=== PATIENT | female | born 1975 | race Caucasian/White ===

== ENCOUNTER → 2017-03-27 | Outpatient (REF) | payer MEDICARE, MEDICAID ==
[2017-03-27 14:20] LABS: BASO % 0.3 % (0.0-1.0); EOS # 0.1 10^3/uL (0.0-0.50); EOS % 1.4 % (0.0-3.0); HEMATOCRIT 45.8 % (36.0-47.0); HEMOGLOBIN 14.7 g/dl (12.0-16.0); IMMATURE GRANULOCYTE % 0.3 % (0-3.0); LYMPH # 2.2 10^3/uL (1.5-4.5); LYMPH % 23.6 % (24.0-44.0); MEAN CORPUSCULAR HEMOGLOBIN 28.4 pg (27.0-33.0); MEAN CORPUSCULAR HGB CONC 32.1 g/dl (32.0-36.5); MEAN CORPUSCULAR VOLUME 88.6 fl (80.0-96.0); MONO # 0.5 10^3/uL (0.0-0.8); MONO % 5.6 % (0.0-5.0); NEUTROPHILS # 6.3 10^3/uL (1.8-7.7); NEUTROPHILS % 68.8 % (36.0-66.0); PLATELET COUNT, AUTOMATED 261 10^3/uL (150-450); RED BLOOD COUNT 5.17 10^6/uL (4.00-5.40); RED CELL DISTRIBUTION WIDTH 14.6 % (11.5-14.5); WHITE BLOOD COUNT 9.2 10^3/uL (4.0-10.0)
[2017-03-27 14:33] LABS: TOTAL 25(OH) VITAMIN D 16.7 NG/ML (30.0-100.0)
[2017-03-27 14:51] LABS: ERYTHROCYTE SEDIMENTATION RATE 7 mm/hr (0-20)
[2017-03-27 15:22] LABS: ALBUMIN 3.7 GM/DL (3.2-5.2); ALKALINE PHOSPHATASE 100 U/L (45-117); ALT/SGPT 20 U/L (12-78); ANION GAP 9 MEQ/L (8-16); AST/SGOT 17 U/L (7-37); BILIRUBIN,TOTAL 0.4 MG/DL (0.2-1.0); BLOOD UREA NITROGEN 11 MG/DL (7-18); CARBON DIOXIDE LEVEL 23 MEQ/L (21-32); CHLORIDE LEVEL 108 MEQ/L (98-107); CREATININE FOR GFR 0.82 MG/DL (0.55-1.30); GLOMERULAR FILTRATION RATE > 60.0 (>60); GLUCOSE, FASTING 79 MG/DL (70-100); POTASSIUM SERUM 4.3 MEQ/L (3.5-5.1); RHEUMATOID FACTOR QUANT < 10.0 IU/ML (0-15.0); SODIUM LEVEL 140 MEQ/L (136-145); TOTAL PROTEIN 7.4 GM/DL (6.4-8.2)
[2017-03-28 10:13] LABS: ANTINUCLEAR ANTIBODIES DIRECT Negative (Negative)
== END ==
LOC: M LABNEURO 10:05
DX: R51 Headache (principal)
CPT/HCPCS: 84443

== ENCOUNTER → 2018-01-20 | Outpatient (CLI) | payer MEDICARE, MEDICAID ==
[2018-01-20 18:02] LABS: BASO % 0.2 % (0.0-1.0); EOS # 0.1 10^3/uL (0.0-0.50); EOS % 0.9 % (0.0-3.0); HEMATOCRIT 40.4 % (36.0-47.0); HEMOGLOBIN 13.2 g/dl (12.0-15.5); LYMPH # 2.9 10^3/uL (1.5-4.5); LYMPH % 20.9 % (24.0-44.0); MEAN CORPUSCULAR HEMOGLOBIN 28.9 pg (27.0-33.0); MEAN CORPUSCULAR HGB CONC 32.7 g/dl (32.0-36.5); MEAN CORPUSCULAR VOLUME 88.6 fl (80.0-96.0); MONO # 0.7 10^3/uL (0.0-0.8); MONO % 4.9 % (0.0-5.0); NEUTROPHILS # 10.2 10^3/uL (1.8-7.7); NEUTROPHILS % 72.5 % (36.0-66.0); PLATELET COUNT, AUTOMATED 234 10^3/uL (150-450); RED BLOOD COUNT 4.56 10^6/uL (4.00-5.40)
[2018-01-22 09:52] LABS: HEPATITIS C VIRUS ABY INDEX 0.1 INDEX (<0.8); HIV 1&2 SCREEN CENTAUR NEGATIVE (NEGATIVE); RUBELLA IgG QUALITATIVE IMMUNE (IMMUNE)
== END ==
LOC: M SMT 14:05
PROVIDERS: ATTEND Advanced Practice Midwife
DX: Z36.89 Encounter for other specified antenatal screening (principal)

== ENCOUNTER → 2018-01-23 | Outpatient (CLI) | payer MEDICARE, MEDICAID | LOC: M RAD 13:29 | DX: Z36.89 Encounter for other specified antenatal screening (principal); Z3A.22 22 weeks gestation of pregnancy | CPT/HCPCS: 76811 ==

== ENCOUNTER → 2018-03-24 | Outpatient (CLI) | payer MEDICARE, MEDICAID ==
[2018-03-24 17:40] LABS: HEMATOCRIT 39.7 % (36.0-47.0); HEMOGLOBIN 12.6 g/dl (12.0-15.5); MEAN CORPUSCULAR HEMOGLOBIN 28.3 pg (27.0-33.0); MEAN CORPUSCULAR HGB CONC 31.7 g/dl (32.0-36.5); MEAN CORPUSCULAR VOLUME 89.2 fl (80.0-96.0); PLATELET COUNT, AUTOMATED 262 10^3/uL (150-450); RED BLOOD COUNT 4.45 10^6/uL (4.00-5.40); WHITE BLOOD COUNT 12.4 10^3/uL (4.0-10.0)
[2018-03-24 18:15] LABS: CHLAMYDIA DNA AMPLIFICATION NEGATIVE (NEGATIVE); GC DNA AMPLIFICATION NEGATIVE (NEGATIVE)
--- NOTE | 2018-03-24 19:54 | REP ---
OB ULTRASOUND: Real-time sonographic evaluation of the gravid uterus is performed. There is a single living intrauterine gestation. The estimated gestational age is 30 weeks 5 days, EDC 05/28/2018. Today's measurements indicate appropriate growth. BPD 74 mm = 29 2 weeks 5 days, 28th percentile. HC 271 mm = 29 weeks 4 days, 25th percentile. AC 289 mm = 32 weeks 6 days, 83rd percentile. Femur length 59 mm = 30 weeks 6 days, at the 52nd percentile. HC/AC ratio 0.94, slightly below normal range of 0.97 to 1.16. Estimated weight 1814 grams, 62nd percentile. Cervix is closed and measures 4.7 cm in length. heart rate 143 beats per minute. Amniotic fluid within normal limits, STEFANI 14.1 within normal range of 8.9 to 23.7. SD ratio 4.25 is within normal range. RI 0.76 within normal range. Visualized anatomy includes posterior fossa, cord insertion, kidneys, and spine which are grossly unremarkable. position is vertex. Placenta is posterior and grade 1 with no previa or abruption. Electronically Signed by Justice Aguillon MD 03/25/2018 10:34 A
== END ==
LOC: M RAD 14:25
PROVIDERS: ATTEND Obstetrics & Gynecology
DX: Z34.82 Encounter for supervision of other normal pregnancy, second trimester (principal); Z36.89 Encounter for other specified antenatal screening; Z3A.30 30 weeks gestation of pregnancy

== ENCOUNTER → 2018-03-28 | Outpatient (CLI) | payer MEDICARE, MEDICAID | LOC: M LAB 08:37 | PROVIDERS: ATTEND Obstetrics & Gynecology | DX: O09.523 Supervision of elderly multigravida, third trimester (principal); Z3A.00 Weeks of gestation of pregnancy not specified ==

== ENCOUNTER → 2018-04-04 | Outpatient (REF) | payer MEDICARE, MEDICAID | LOC: M LAB REF 17:17 | PROVIDERS: ATTEND Advanced Practice Midwife | DX: B09 Unspecified viral infection characterized by skin and mucous membrane lesions (principal) ==

== ENCOUNTER → 2018-04-18 | Outpatient (REF) | payer MEDICARE, MEDICAID ==
[2018-04-23 08:23] LABS: HPV HYBRID CAPTURE II Positive (Negative)
== END ==
LOC: M LAB REF 13:15
PROVIDERS: ATTEND Advanced Practice Midwife
DX: Z12.4 Encounter for screening for malignant neoplasm of cervix (principal); O09.523 Supervision of elderly multigravida, third trimester; Z11.51 Encounter for screening for human papillomavirus (HPV); Z3A.00 Weeks of gestation of pregnancy not specified
CPT/HCPCS: 87624; G0123

== ENCOUNTER 2018-05-23 06:39 | Inpatient (IN) | payer MEDICARE, MEDICAID ==
[~2018-05-23] VITALS: Ht 182.9 cm; Wt 129.0 kg
[2018-05-23] VITALS (17 sets, daily range): BP systolic 104–141; BP diastolic 55–87
[2018-05-23] MEDS ORDERED: LACTATED RINGER'S 1000 ML IV STA (07:55)
--- NOTE | 2018-05-23 08:12 | HPEPDOC ---
Obstetrical History & Physical General Date of Admission May 23, 2018 at 06:39 History of Present Illness Chief Complaint: Induction of labor Information Provided By: Patient Age: 42 : 2 Term: 1 Pre-term: 0 Abortions: 0 Livin Care Care: Limited Care (late entry to care) Dating Final EDC: May 28, 2018 Final EDC by: 2nd trimester (US) EGA at Admission: 39 (+2) Antepartum Course Height (inches): 72 Admission Weight (lbs.): 281 Past Medical History Past Obstetrical History : Past Obstetrical History: Primgravida (2013) Type of Delivery: Spontaneous Vaginal Del. Sex of : Male (6#4) Complications: Yes (home delivery, unaware of ) GREEN WARE CASTER History: No pertinent history Past Medical History Surgical History: Other (brain tumor resection x 2) Family History Significant Family History: Diabetes, Hypertension Social History Marital Status: Single Family situation: Spouse/partner home Psychosocial History: No pertinent psych hx * Smoker: current smoker Alcohol: Denies Drugs: denies Imunizations Tdap status: current Allergies Coded Allergies: Penicillins (Verified Allergy, Severe, RASH, 05/23/18) Medications No Active Prescriptions or Reported Meds Physical Examination Physical Examination GENERAL: Alert and oriented times three. BREAST: . ABDOMEN: Gravid and non-tender to touch. FETUS: Is vertex (VTX) by sterile vaginal examination (SVE), fetus is vertex (VTX) by Arjun. HEART RATE: Regular rate and rhythm. LUNGS: Clear to auscultation (CTA). EXTREMITIES: No edema. No clonus. Deep tendon reflexes (DTRs) + 2. Laboratory Data 24H LABS Laboratory Tests 2 05/23/18 07:01: Serology Scanned Report Hepatitis B Testing Pertinent Laboratoy Data Blood Type: B+ RBC Antibody Screen: Negative HIV: Negative Hepatitis B: Negative Hepatitis C: Negative Rapid Plasma Reagin: Nonreactive Rubella: Immune Chlamydia/Gonorrhea: Negative Group B Streptococcus: Positive Glucose Tolerance Test: 147 (3hr 79,188.153,83) Anatomy Ultrasound Ultrasound Date: Jan 23, 2018 Normal Anatomy: Yes Placenta Previa: No Estimated Weight (grams): 496 (51%) Other Ultrasounds 03/24/18 FH 143, 1814gm 62%, anatomy WNL Steroid Therapy Steroid Therapy: No Vaginal Examination Dilation: 1cm Effacement: 50% Station: -3 (-4, floating) Cervical Position: Posterior Presentation: Cephalic presentation (confirmed by bedside sono) Assessment Heart Rate (FHR): 130 Variability: Moderate Accelerations: Positive Decelerations: None Tocometer Contractions: Yes Frequency: irregular (rare) Strength: palpated as mild Assessment/Plan Assessment Allison is a 42-year-old (G)2 para (P)1-0-0-1 at 39+2 weeks by 22-week ultrasound. Presents to Labor and Delivery (L&D) for induction of labor due to advanced maternal age. Denies LOF, bleeding or regular UC. Fetus is active. Bedside sono confirms presentation. Plan Admit and orient per consult Dr Mason Associate Scientist and consent. Diet: Regular Group B Streptococcus (GBS) positive, treat in active labor. Labs and intravenous (IV) per unit protocol. Counseled on misoprostol, Pitocin and induction of labor (IOL). Lactated Ringers (LR): Bolus 500 mL, then at saline lock. Plans to labor ad faizan Anticipate normal spontaneous delivery () C-S as appropriate. Katlyn Rivas CNM May 23, 2018 08:12
[2018-05-23 08:17] LABS: HEMATOCRIT 41.7 % (36.0-47.0); HEMOGLOBIN 13.9 g/dl (12.0-15.5); MEAN CORPUSCULAR HEMOGLOBIN 28.9 pg (27.0-33.0); MEAN CORPUSCULAR HGB CONC 33.3 g/dl (32.0-36.5); MEAN CORPUSCULAR VOLUME 86.7 fl (80.0-96.0); PLATELET COUNT, AUTOMATED 193 10^3/uL (150-450); RED BLOOD COUNT 4.81 10^6/uL (4.00-5.40); WHITE BLOOD COUNT 11.7 10^3/uL (4.0-10.0)
[2018-05-23] MEDS: miSOPROStol 50 MCG 1/2 TAB (S0191) PO SCH ×3 (08:19→17:11)
--- NOTE | 2018-05-23 20:15 | IPNPDOC ---
Text Note Date of Service The patient was seen on 05/23/18. NOTE Irregular UC Occasional variable decels following misoprostol administration Cat I with intermittent Cat II Will attempt Cooks Catheter and low dose pitocin overnight VS,Fishbone, I+O VS, Fishbone, I+O Laboratory Tests 05/23/18 08:03 Red Blood Count 4.81, Mean Corpuscular Volume 86.7, Mean Corpuscular Hemoglobin 28.9, Mean Corpuscular Hemoglobin Concent 33.3, Red Cell Distribution Width 15.4 H Vital Signs Date Time Temp Pulse Resp B/P (MAP) Pulse Ox O2 Delivery O2 Flow Rate FiO2 05/23/18 18:21 55 18 104/55 (71) 05/23/18 11:53 98.2 Katlyn Rivas CNM May 23, 2018 20:15
[2018-05-23] MEDS ORDERED: OXYTOCIN DRIP 30 UNITS in APPROPRIATE DILUENT 1 EA IV SCH (21:00)
--- NOTE | 2018-05-23 21:02 | IPNPDOC ---
Text Note Date of Service The patient was seen on 05/23/18. NOTE Mild irregular UC FH 130, Cat I SVE 250/-3, very anterior Cooks catheter placed, 60/40 Low dose pitocin overnight VS,Fishbone, I+O VS, Fishbone, I+O Laboratory Tests 05/23/18 08:03 Red Blood Count 4.81, Mean Corpuscular Volume 86.7, Mean Corpuscular Hemoglobin 28.9, Mean Corpuscular Hemoglobin Concent 33.3, Red Cell Distribution Width 15.4 H Vital Signs Date Time Temp Pulse Resp B/P (MAP) Pulse Ox O2 Delivery O2 Flow Rate FiO2 05/23/18 18:21 55 18 104/55 (71) 05/23/18 11:53 98.2 Katlyn Rivas CNM May 23, 2018 21:02
[2018-05-23] MEDS ORDERED: BUTORPHANOL 2 MG/ML INJ (J0595) IV ONE (21:15)
[2018-05-23] MEDS ORDERED: PROMETHAZINE INJ 25 MG/ML VIAL (J2550) IV ONE (21:15)
[2018-05-23] MEDS: LR 1,000 ML IV SCH (21:28)
[2018-05-24] VITALS (40 sets, daily range): BP systolic 97–171; BP diastolic 54–117
[2018-05-24] MEDS: CLINDAMYCIN 900 MG in APPROPRIATE DILUENT 1 EA IV SCH ×3 (00:37→16:56)
--- NOTE | 2018-05-24 03:14 | IPNPDOC ---
Text Note Date of Service The patient was seen on 05/24/18. NOTE Cooks catheter out with a cough FH 130, Cat I now UC 3-4 minutes apart x 60 seconds SVE 3-/-2 Will restart lo dose pitocin overnight VS,Fishbone, I+O VS, Fishbone, I+O Laboratory Tests 05/23/18 08:03 Red Blood Count 4.81, Mean Corpuscular Volume 86.7, Mean Corpuscular Hemoglobin 28.9, Mean Corpuscular Hemoglobin Concent 33.3, Red Cell Distribution Width 15.4 H Vital Signs Date Time Temp Pulse Resp B/P (MAP) Pulse Ox O2 Delivery O2 Flow Rate FiO2 05/23/18 18:21 55 18 104/55 (71) 05/23/18 11:53 98.2 I&O- Last 24 Hours up to 6 AM 05/24/18 06:00 Intake Total 500 ml Balance 500 ml Katlyn Rivas CNM May 24, 2018 03:14
[2018-05-24] MEDS: LR 1,000 ML IV SCH ×3 (03:50→18:48)
[2018-05-24] MEDS ORDERED: ceFAZolin SOD 1 GM in D5W MINI-BAG PLUS 50 ML IV SCH (05:00)
[2018-05-24] MEDS ORDERED: ACETAMINOPHEN 500 MG TAB PO PRN (21:30)
[2018-05-24] MEDS ORDERED: MEASLES,MUMPS,RUBELLA VACCINE INJ (MMR-II) (90707) SC SCH (21:30)
[2018-05-24] MEDS ORDERED: LIDOCAINE 1% MDV 20ML VIAL INFIL ONE (21:30)
[2018-05-24] MEDS ORDERED: METHYLERGONOVINE MALEATE 0.2 MG TAB PO PRN (21:30)
[2018-05-24] MEDS ORDERED: RHOGAM 300 MCG (1500 IU) INJ (J2790) IM SCH (21:30)
[2018-05-24] MEDS ORDERED: OXYTOCIN DRIP 30 UNITS in APPROPRIATE DILUENT 1 EA IV ONE (21:30)
[2018-05-24] MEDS ORDERED: DIBUCAINE 1% OINTMENT 30GM TOP PRN (21:30)
[2018-05-24] MEDS ORDERED: ONDANSETRON 4MG/2ML VIAL (J2405) IV PRN (21:30)
[2018-05-24] MEDS ORDERED: IBUPROFEN 800 MG TAB PO PRN (21:30)
[2018-05-24] MEDS ORDERED: DOCUSATE SODIUM 100 MG CAP PO PRN (21:30)
[2018-05-25 06:00] VITALS: BP 106/68
[2018-05-25] MEDS: PRENATAL VITAMINS CHEWABLE TABLET PO SCH (08:55)
--- NOTE | 2018-05-25 09:35 | DN ---
DATE OF DELIVERY: 05/24/2018 PREDELIVERY DIAGNOSIS: 40 weeks, induction. POSTDELIVERY DIAGNOSIS: Delivered. PROCEDURE: Spontaneous vaginal delivery. TALENT DEVELOPMENT ANALYST: Dr. Jose Mason ANESTHESIA: None. ESTIMATED BLOOD LOSS: 300 mL. FINDINGS: 7 pound 0 ounce male infant, Apgars 8 and 9. DELIVERY SUMMARY: After a 45 minute second stage, the patient had spontaneous delivery of a 7 pound 0 ounce male , Apgars 8 and 9, with no delivery anesthesia. There was no nuchal cord. The shoulders delivered with ease. The was handed to the mother and cried immediately. Cord was doubly clamped and cut. Placenta delivered spontaneously and appeared to be intact. A second degree perineal laceration was repaired with #2-0 chromic under local anesthesia in the usual fashion. Sponge and needle counts were correct.
[2018-05-25 20:00] VITALS: BP 137/63
[2018-05-26 05:53] VITALS: BP 142/68
[2018-05-26] MEDS: PRENATAL VITAMINS CHEWABLE TABLET PO SCH (08:36)
[2018-05-26] MEDS ORDERED: IBUP200C27 PO (09:35)
[2018-05-26] MEDS ORDERED: PRENTAB9 PO (09:35)
[2018-05-26] MEDS ORDERED: MAPA500T2 PO (09:35)
== END 2018-05-26 09:55 | disposition home or self-care (01) | DRG 807 ==
LOC: M LDI 06:39 → M OBS 05-24 22:56
PROVIDERS: ADMIT Obstetrics & Gynecology; ATTEND Specialist
PROC: 3E0P7GC Introduction of Other Therapeutic Substance into Female Reproductive, Via Natural or Artificial Opening (ICD-10-PCS; 2018-05-23)
PROC: 10E0XZZ Delivery of Products of Conception, External Approach (ICD-10-PCS; principal; 2018-05-24)
PROC: 0KQM0ZZ Repair Perineum Muscle, Open Approach (ICD-10-PCS; 2018-05-24)
DX: O99.824 Streptococcus B carrier state complicating childbirth (principal); Z37.0 Single live birth; F17.210 Nicotine dependence, cigarettes, uncomplicated; Z3A.39 39 weeks gestation of pregnancy; O99.334 Smoking (tobacco) complicating childbirth; O70.1 Second degree perineal laceration during delivery

== ENCOUNTER → 2020-07-23 | Outpatient (CLI) | payer MEDICARE, MEDICAID ==
[~2020-07-23] MED LIST: IBUP200C27 PO; MAPA500T2 PO; PRENTAB9 PO
[2020-07-23 15:28] LABS: BASO # 0.1 10^3/uL (0.0-0.2); BASO % 0.5 % (0.0-1.0); EOS # 0.2 10^3/uL (0.0-0.5); EOS % 1.8 % (0.0-3.0); HEMATOCRIT 43.9 % (36.0-47.0); HEMOGLOBIN 14.1 g/dl (12.0-15.5); LYMPH # 2.8 10^3/uL (1.5-5.0); LYMPH % 24.9 % (24.0-44.0); MEAN CORPUSCULAR HEMOGLOBIN 28.8 pg (27.0-33.0); MEAN CORPUSCULAR HGB CONC 32.1 g/dl (32.0-36.5); MEAN CORPUSCULAR VOLUME 89.8 fl (80.0-96.0); MONO # 0.5 10^3/uL (0.0-0.8); MONO % 4.7 % (2.0-8.0); NEUTROPHILS # 7.7 10^3/uL (1.5-8.5); NEUTROPHILS % 67.7 % (36.0-66.0); PLATELET COUNT, AUTOMATED 261 10^3/uL (150-450); RED BLOOD COUNT 4.89 10^6/uL (4.00-5.40); WHITE BLOOD COUNT 11.4 10^3/uL (4.0-10.0)
[2020-07-23 15:47] LABS: HEMOGLOBIN A1c 7.3 %
[2020-07-23 16:06] LABS: ALBUMIN 3.2 GM/DL (3.2-5.2); ALT/SGPT 49 U/L (12-78); BILIRUBIN,TOTAL 0.2 MG/DL (0.2-1.0); BLOOD UREA NITROGEN 9 MG/DL (7-18); CALCIUM LEVEL 8.1 MG/DL (8.5-10.1); CARBON DIOXIDE LEVEL 25 MEQ/L (21-32); CHLORIDE LEVEL 108 MEQ/L (98-107); CHOLESTEROL LEVEL 149 MG/DL (<200); CHOLESTEROL RISK RATIO 4.257 (<5); CREATININE FOR GFR 0.83 MG/DL (0.55-1.30); GLOMERULAR FILTRATION RATE > 60.0 (>58); GLUCOSE, FASTING 219 MG/DL (70-100); HDL CHOLESTEROL 35 MG/DL (>40); LDL CHOLESTEROL 81 MG/DL (<100); NON-HDL-C 114 MG/DL; SODIUM LEVEL 139 MEQ/L (136-145); TRIGLYCERIDES LEVEL 165 MG/DL (<150)
== END ==
LOC: M LAB 14:54
PROVIDERS: ATTEND Internal Medicine
DX: E11.9 Type 2 diabetes mellitus without complications (principal)

== ENCOUNTER 2021-01-06 10:33 | Emergency (ER) | payer MEDICARE, MEDICAID ==
[~2021-01-06] VITALS: Ht 182.9 cm; Wt 145.4 kg
--- OUTSIDE RECORDS SUMMARY | 2021-01-06 10:37 | CCD | Continuity of Care Document ---
Author Author Allison QUINTANILLA M.D. Organization Unknown Address [address] [place] [id number] Phone [phone] Problems Active Problems Provider Date Diabetes mellitus Riley Quintanilla M.D. Onset: Social History Type Date Description Comments Sex Unknown Tobacco Use Start: Unknown Patient is a current smoker, smo kes every day Allergies, Adverse Reactions, Alerts Active Allergies Criticality Reaction | Severity Comments Date Penicillins Unable to assess criticality 06/08/2020 Medications Active Medications SIG Qnty Indications Ordering Provide r Date Lexapro 10mg Tablets 1 by mouth every day 30tabs Riley Quintanilla M.D. 10/24/2020 Glucotrol XL 10mg Tablets ER 24HR 1 by mouth every day 90tabs Riley Quintanilla M.D. 07/21/19 21 Onetouch Ultra Strips test blood sugars once a day and as needed (dx:e11.9) 50units E11.9 Kodi Quintanilla M.D. 01/01/2020 History Medications Glucotrol XL 5mg Tablets ER 24HR 1 by mouth every day 30tabs Riley Quintanilla M.D. 06/09/19 21 - 07/20/2020 Immunizations Description No Information Available Vital Signs Date Vital Result Comment 10/24/2020 9:57am BP Systolic 124 mmHg BP Diastolic 74 mmHg Body Temperature 96.7 F Heart Rate 78 /min Respiratory Rate 16 /min Height 73 inches 6'1" Weight 330.00 lb [place] Body Weight 165 lb BMI (Body Mass Index) 43.5 kg/m2 O2 % BldC Oximetry 98 % 07/20/2020 2:39pm BP Systolic 106 mmHg BP Diastolic 60 mmHg Body Temperature 96.7 F Heart Rate 88 /min Respiratory Rate 18 /min Height 73 inches 6'1" Weight 341.00 lb [place] Body Weight 165 lb BMI (Body Mass Index) 45.0 kg/m2 O2 % BldC Oximetry 96 % Results Test Acquired Date Facility Test Result H/L Range Note CBC With Differential 07/23/2020 [facility] (Interface) [phone] White Blood Count 11.4 10 High 4.0-10.0 Red Blood Count 4.89 10 Normal 4.00-5.40 Hemoglobin 14.1 g/dL Normal 12.0-15.5 Hematocrit 43.9 % Normal 36.0-47.0 Mean Corpuscular Volume 89.8 fl Normal 80.0-96.0 Mean Corpuscular Hemoglobin 28.8 pg Normal 27.0-33.0 Mean Corpuscular HGB Conc 32.1 g/dL Normal 32.0-36.5 Red Cell Distribution Width 13.6 % Normal 11.5-14.5 Platelet Count, Automated 261 10 Normal 150-450 Neutrophils % 67.7 % High 36.0-66.0 Lymph % 24.9 % Normal 24.0-44.0 [place] % 4.7 % Normal 2.0-8.0 Eos % 1.8 % Normal 0.0-3.0 Baso % 0.5 % Normal 0.0-1.0 Immature Granulocyte % 0.4 % Normal 0-3.0 Nucleated Red Blood Cell % 0.0 % Normal 0-0 Neutrophils # 7.7 10 Normal 1.5-8.5 Lymph # 2.8 10 Normal 1.5-5.0 [place] # 0.5 10 Normal 0.0-0.8 Eos # 0.2 10 Normal 0.0-0.5 Baso # 0.1 10 Normal 0.0-0.2 Hemoglobin A1c 07/23/2020 [facility] [phone] Hemoglobin A1c 7.3 % Normal 1 Estimated Average Glucose 163 mg/dL High 60-110 Comprehensive Metabolic Profil 07/23/2020 [facility] (Interface) [phone] Glucose, Fasting 219 mg/dL High 70-100 Blood Urea Nitrogen 9 mg/dL Normal 7-18 Creatinine For GFR 0.83 mg/dL Normal 0.55-1.30 Glomerular Filtration Rate > 60.0 Normal >58 2 Sodium Level 139 mEq/L Normal 136-145 Potassium Serum 4.0 mEq/L Normal 3.5-5.1 Chloride Level 108 mEq/L High 98-107 Carbon Dioxide Level 25 mEq/L Normal 21-32 Anion Gap 6 mEq/L Low 8-16 Calcium Level 8.1 mg/dL Low 8.5-10.1 Ast/Sgot 34 U/L Normal 7-37 Alt/SGPT 49 U/L Normal 12-78 Alkaline Phosphatase 131 U/L High 45-117 Bilirubin,Total 0.2 mg/dL Normal 0.2-1.0 Total Protein 7.0 GM/DL Normal 6.4-8.2 Albumin 3.2 GM/DL Normal 3.2-5.2 Albumin/Globulin Ratio 0.8 Low 1.2-2.2 Lipid Panel 07/23/2020 [facility] ([facility]) [phone] Triglycerides Level 165 mg/dL High <150 Cholesterol Level 149 mg/dL Normal <200 HDL Cholesterol 35 mg/dL Low >40 LDL Cholesterol 81 mg/dL Normal <100 Non-HDL-C 114 mg/dL Normal Cholesterol Risk Ratio 4.257 Normal <5 Laboratory test finding 07/23/2020 [facility] (Interface) [phone] Thyroid Stimulating Hormone 1.980 uIU/ML Normal 0. 358-3.740 1 REFERENCE RANGES: <=5.6% NORMAL 5.7-6.4% SUGGESTS IMPAIRED GLUCOSE META BOLISM/PREDIABETIC >= 6.5% ABNORMAL 2 Units are mL/min/1.73 m2 Chronic Kidney Disease Staging per NKF: Stage I & II GFR >=60 Normal to Mildly Decreased Stage III GFR 30-59 Moderately Decreased Stage IV GFR 15-29 Severely Decreased Stage V GFR <15 Very Little GFR Left ESRD GFR <15 on [employer] Procedures Date Code Description Status 10/24/2020 88555 Office/Outpatient Established Mo d MDM 30-39 Min Completed 07/20/2020 07970 Office/Outpatient Established Mo d MDM 30-39 Min Completed 06/08/2020 57954 Preventive Visit New 40-64 Yrs C ompleted Medical Devices Description No Information Available Encounters Type Date Location Provider Dx Diagnosis Office Visit 10/24/2020 11:00a [facility] Riley Quintanilla M. D. E11.9 Type 2 diabetes mellitus without complications F33.0 Major depressive disorder, r ecurrent, mild Office Visit 07/20/2020 3:20p [facility] Riley Quintanilla M. D. E11.9 Type 2 diabetes mellitus without complications Office Visit 06/08/2020 1:30p [facility] Riley Quintanilla M. D. Z00.01 Encounter for general adult medical exam w abnormal findings E11.9 Type 2 diabetes mellitus wit hout complications Assessments Date Code Description Provider 10/24/2020 E11.9 Type 2 diabetes mellitus without complications Riley Quintanilla M.D. 10/24/2020 F33.0 Major depressive disorder, recur rent, mild Riley Quintanilla M.D. 07/20/2020 E11.9 Type 2 diabetes mellitus without complications Riley Quintanilla M.D. 06/08/2020 Z00.01 Encounter for genera l adult medical examination with abnormal findings Riley Quintanilla M.D. 06/08/2020 E11.9 Type 2 diabetes mellitus without complications Riley Quintanilla M.D. Plan of Treatment No Information Available Functional Status Description No Information Available Mental Status Description No Information Available Referrals Description No Information Available
--- OUTSIDE RECORDS SUMMARY | 2021-01-06 10:37 | CCD | Continuity of Care Document ---
Author Author Allison QUINTANILLA M.D. Organization Unknown Address [address] [place] [id number] Phone [phone] Problems Active Problems Provider Date Diabetes mellitus [...] Height 73 inches 6'1" Weight 330.00 lb [place] Body Weight 165 lb BMI (Body Mass Index) 43.5 kg/m2 O2 % BldC Oximetry 98 % 07/20/2020 2:39pm BP Systolic 106 mmHg BP Diastolic 60 mmHg Body Temperature 96.7 F Heart Rate 88 /min Respiratory Rate 18 /min Height 73 inches 6'1" Weight 341.00 lb [place] Body Weight 165 lb BMI (Body Mass Index) 45.0 kg/m2 O2 % BldC Oximetry 96 % Results Test Acquired Date Facility Test Result H/L Range Note CBC With Differential 07/23/2020 [facility] (Interface) [phone] White Blood Count 11.4 10 High 4.0-10.0 [...] 36.0-66.0 Lymph % 24.9 % Normal 24.0-44.0 [place] % 4.7 % Normal 2.0-8.0 Eos % 1.8 % Normal 0.0-3.0 Baso % 0.5 % Normal 0.0-1.0 Immature Granulocyte % 0.4 % Normal 0-3.0 Nucleated Red Blood Cell % 0.0 % Normal 0-0 Neutrophils # 7.7 10 Normal 1.5-8.5 Lymph # 2.8 10 Normal 1.5-5.0 [place] # 0.5 10 Normal 0.0-0.8 Eos # 0.2 10 Normal 0.0-0.5 Baso # 0.1 10 Normal 0.0-0.2 Hemoglobin A1c 07/23/2020 [facility] [phone] Hemoglobin A1c 7.3 % Normal 1 Estimated Average Glucose 163 mg/dL High 60-110 Comprehensive Metabolic Profil 07/23/2020 [facility] (Interface) [phone] Glucose, Fasting 219 mg/dL High 70-100 Blood [...] Ratio 0.8 Low 1.2-2.2 Lipid Panel 07/23/2020 [facility] ([facility]) [phone] Triglycerides Level 165 mg/dL High <150 Cholesterol Level 149 mg/dL Normal <200 HDL Cholesterol 35 mg/dL Low >40 LDL Cholesterol 81 mg/dL Normal <100 Non-HDL-C 114 mg/dL Normal Cholesterol Risk Ratio 4.257 Normal <5 Laboratory test finding 07/23/2020 [facility] (Interface) [phone] Thyroid Stimulating Hormone 1.980 uIU/ML Normal 0. [...] Little GFR Left ESRD GFR <15 on RADIO HOST Procedures Date Code Description Status 10/24/2020 11079 Office/Outpatient Established Mo d MDM 30-39 Min Completed 07/20/2020 63781 Office/Outpatient Established Mo d MDM 30-39 Min Completed 06/08/2020 82302 Preventive Visit New 40-64 Yrs C ompleted Medical Devices Description No Information Available Encounters Type Date Location Provider Dx Diagnosis Office Visit 10/24/2020 11:00a [facility] Riley Quintanilla M. D. E11.9 Type 2 diabetes mellitus without complications F33.0 Major depressive disorder, r ecurrent, mild Office Visit 07/20/2020 3:20p [facility] Riley Quintanilla M. D. E11.9 Type 2 diabetes mellitus without complications Office Visit 06/08/2020 1:30p [facility] Riley Quintanilla M. D. Z00.01 Encounter [...] complications Riley Quintanilla M.D. Plan of Treatment Future Appointment(s):* 11/25/2020 8:45 am - Riley Quintanilla M.D. at [facility] Functional Status Description No Information Available Mental Status Description No Information Available Referrals Description No Information Available
--- OUTSIDE RECORDS SUMMARY | 2021-01-06 10:37 | CCD ---
Author Author [facility] Organization [facility] Address Unknown Phone Unavailable Care Team Providers Care Shower Enclosure Installer Name Role Phone Marine Lin ANP-BC Unavailable Unavailable FarrahMarinen ANP-BC Unavailable Unavailable FarrahMarine Venecia ANP-BC Unavailable Unavailable FarrahMarine Venecia ANP-BC Unavailable Unavailable FarrahMarine Venecia ANP-BC Unavailable Unavailable FarrahMarine Venecia ANP-BC Unavailable Unavailable FarrahMarine Venecia ANP-BC Unavailable Unavailable Marine Lin Venecia ANP-BC Unavailable Unavailable Marine Lin Venecia ANP-BC Unavailable Unavailable FarrahMarine Venecia ANP-BC Unavailable Unavailable FarrahMarine Venecia ANP-BC Unavailable Unavailable FarrahMarine Venecia ANP-BC Unavailable Unavailable FarrahMarine Venecia ANP-BC Unavailable Unavailable FarrahMarine Venecia ANP-BC Unavailable Unavailable FarrahMarine Venecia ANP-BC Unavailable Unavailable FarrahMarine Venecia ANP-BC Unavailable Unavailable Farrah Marine Venecia ANP-BC Unavailable Unavailable FarrahMarine Venecia ANP-BC Unavailable Unavailable Farrah Marine Venecia ANP-BC Unavailable Unavailable FarrahMarine Venecia ANP-BC Unavailable Unavailable Farrah Marine Venecia ANP-BC Unavailable Unavailable FarrahMarine Venecia ANP-BC Unavailable Unavailable Farrah Marine Venecia ANP-BC Unavailable Unavailable FarrahMarine Venecia ANP-BC Unavailable Unavailable Farrah Marine Venecia ANP-BC Unavailable Unavailable FarrahMarine Venecia ANP-BC Unavailable Unavailable Farrah Marine Venecia ANP-BC Unavailable Unavailable Farrah, Marine Venecia ANP-BC Unavailable Unavailable Farrah, Marine Venecia ANP-BC Unavailable Unavailable Farrah, Marine Venecia ANP-BC Unavailable Unavailable Farrah, Mraine Venecia ANP-BC Unavailable Unavailable Farrah, Marine Venecia ANP-BC Unavailable Unavailable Farrah, Marine Venecia ANP-BC Unavailable Unavailable Farrah, Marine Venecia ANP-BC Unavailable Unavailable Farrah, Marine Venecia ANP-BC Unavailable Unavailable Farrah, Marine Venecia ANP-BC Unavailable Unavailable Farrah, Marine Venecia ANP-BC Unavailable Unavailable Farrah, Marine Venecia ANP-BC Unavailable Unavailable Farrah, Marine Venecia ANP-BC Unavailable Unavailable Farrah, Marine Venecia ANP-BC Unavailable Unavailable Farrah, Marine Venecia ANP-BC Unavailable Unavailable Farrah, Marine Venecia ANP-BC Unavailable Unavailable Farrah, Marine Venecia ANP-BC Unavailable Unavailable Farrah, Marine Venecia ANP-BC Unavailable Unavailable Farrah, Marine Venecia ANP-BC Unavailable Unavailable Farrah, Marine Venecia ANP-BC Unavailable Unavailable Farrah, Marine Venecia ANP-BC Unavailable Unavailable Farrah, Marine Venecia ANP-BC Unavailable Unavailable Farrah, Marine Venecia ANP-BC Unavailable Unavailable Farrah, Marine Venecia ANP-BC Unavailable Unavailable Farrah, Marine Venecia ANP-BC Unavailable Unavailable Farrah, Marine Venecia ANP-BC Unavailable Unavailable Farrah, Marine Venecia ANP-BC Unavailable Unavailable Farrah, Marine Venecia ANP-BC Unavailable Unavailable Farrah, Marine Venecia ANP-BC Unavailable Unavailable Farrah, Marine Venecia ANP-BC Unavailable Unavailable Farrah, Marine Venecia ANP-BC Unavailable Unavailable Farrah, Marine Venecia ANP-BC Unavailable Unavailable Farrah, Marine Venecia ANP-BC Unavailable Unavailable Farrah, Marine Venecia ANP-BC Unavailable Unavailable Farrah, Marine Venecia ANP-BC Unavailable Unavailable Farrah, Marine Venecia ANP-BC Unavailable Unavailable Farrah, Marine Venecia ANP-BC Unavailable Unavailable Farrah, Marine Venecia ANP-BC Unavailable Unavailable Farrah, Marine Venecia ANP-BC Unavailable Unavailable Farrah, Marine Venecia ANP-BC Unavailable Unavailable Gina Hunt Unavailable Justina Edgar Unavailable Unavailable HARDWICK, MARK ANTHONY NORM TREER Unavailable Unavailable HARDWICK, MARK ANTHONY NORM TREER Unavailable Unavailable HARDWICK, MARK ANTHONY NORM TREER Unavailable Unavailable HARDWICK, MARK ANTHONY NORM TREER Unavailable Unavailable HARDWICK, MARK ANTHONY NORM TREER Unavailable Unavailable HARDWICK, MARK ANTHONY NORM TREER Unavailable Unavailable HARDWICK, MARK ANTHONY NORM TREER Unavailable Unavailable HARDWICK, MARK ANTHONY NORM TREER Unavailable Unavailable HARDWICK, MARK ANTHONY NORM TREER Unavailable Unavailable HARDWICK, MARK ANTHONY NORM TREER Unavailable Unavailable HARDWICK, MARK ANTHONY NORM TREER Unavailable Unavailable HARDWICK, MARK ANTHONY NORM TREER Unavailable Unavailable HARDWICK, MARK ANTHONY NORM TREER Unavailable Unavailable HARDWICK, MARK ANTHONY NORM TREER Unavailable Unavailable HARDWICK, MARK ANTHONY NORM TREER Unavailable Unavailable HARDWICK, MARK ANTHONY NORM TREER Unavailable Unavailable HARDWICK, MARK ANTHONY NORM TREER Unavailable Unavailable HARDWICK, MARK ANTHONY NORM TREER Unavailable Unavailable HARDWICK, MARK ANTHONY NORM TREER Unavailable Unavailable HARDWICK, MARK ANTHONY NORM TREER Unavailable Unavailable HARDWICK, MARK ANTHONY NORM TREER Unavailable Unavailable HARDWICK, MARK ANTHONY NROM TREER Unavailable Unavailable HARDWICK, MARK ANTHONY NORM TREER Unavailable Unavailable Maday QUINTANILLA MD Unavailable Unavailable Maday QUINTANILLA MD Unavailable Unavailable Maday QUINTANILLA MD Unavailable Unavailable Maday QUINTANILLA MD Unavailable Unavailable Maday QUINTANILLA MD Unavailable Unavailable Maday QUINTANILLA MD Unavailable Unavailable Maday QUINTANILLA MD Unavailable Unavailable Maday QUINTANILLA MD Unavailable Unavailable Maday QUINTANILLA MD Unavailable Unavailable Maday QUINTANILLA MD Unavailable Unavailable Maday QUINTANILLA MD Unavailable Unavailable Maday QUINTANILLA MD Unavailable Unavailable Maday QUINTANILLA MD Unavailable Unavailable Maday QUINTANILLA MD Unavailable Unavailable Maday QUINTANILLA MD Unavailable Unavailable Maday QUINTANILLA MD Unavailable Unavailable Maday QUINTANILLA MD Unavailable Unavailable Maday QUINTANILLA MD Unavailable Unavailable Maday QUINTANILLA MD Unavailable Unavailable Maday QUINTANILLA MD Unavailable Unavailable Maday QUINTANILLA MD Unavailable Unavailable Maday QUINTANILLA MD Unavailable Unavailable Maday QUINTANILLA MD Unavailable Unavailable Maday QUINTANILLA MD Unavailable Unavailable Maday QUINTANILLA MD Unavailable Unavailable Maday QUINTANILLA MD Unavailable Unavailable Maday QUINTANILLA MD Unavailable Unavailable Maday QUINTANILLA MD Unavailable Unavailable Maday QUINTANILLA MD Unavailable Unavailable Maday QUINTANILLA MD Unavailable Unavailable Maday QUINTANILLA MD Unavailable Unavailable Maday QUINTANILLA MD Unavailable Unavailable Maday QUINTANILLA MD Unavailable Unavailable Maday QUINTANILLA MD Unavailable Unavailable Maday QUINTANILLA MD Unavailable Unavailable Maday QUINTANILLA MD Unavailable Unavailable Maday QUINTANILLA MD Unavailable Unavailable Maday QUINTANILLA MD Unavailable Unavailable DWIGHT, H FARRAH MD Unavailable Unavailable DWIGHT, H FARRAH MD Unavailable Unavailable DWIGHT, H FARRAH MD Unavailable Unavailable DWIGHT, H FARRAH MD Unavailable Unavailable DWIGHT, H FARRAH MD Unavailable Unavailable DWIGHT, H FARRAH MD Unavailable Unavailable DWIGHT, H FARRAH MD Unavailable Unavailable DWIGHT, H FARRAH MD Unavailable Unavailable DWIGHT, H FARRAH MD Unavailable Unavailable DWIGHT, H FARRAH MD Unavailable Unavailable DWIGHT, H FARRAH MD Unavailable Unavailable DWIGHT, H FARRAH MD Unavailable Unavailable DWIGHT, H FARRAH MD Unavailable Unavailable DWIGHT, H FARRAH MD Unavailable Unavailable DWIGHT, H FARRAH MD Unavailable Unavailable DWIGHT, H FARRAH MD Unavailable Unavailable DWIGHT, H FARRAH MD Unavailable Unavailable DWIGHT, H FARRAH MD Unavailable Unavailable DWIGHT, H FARRAH MD Unavailable Unavailable DWIGHT, H FARRAH MD Unavailable Unavailable DWIGHT, H FARRAH MD Unavailable Unavailable DWIGHT, H FARRAH MD Unavailable Unavailable DWIGHT, H FARRAH MD Unavailable Unavailable DWIGHT, H FARRAH MD Unavailable Unavailable DWIGHT, H FARRAH MD Unavailable Unavailable DWIGHT, H FARRAH MD Unavailable Unavailable DWIGHT, H FARRAH MD Unavailable Unavailable DWIGHT, H FARRAH MD Unavailable Unavailable DWIGHT, H FARRAH MD Unavailable Unavailable DWIGHT, H FARRAH MD Unavailable Unavailable DWIGHT, H FARRAH MD Unavailable Unavailable DWIGHT, H FARRAH MD Unavailable Unavailable DWIGHT, H FARRAH MD Unavailable Unavailable DWIGHT, H FARRAH MD Unavailable Unavailable DWIGHT, H FARRAH MD Unavailable Unavailable DWIGHT, H FARRAH MD Unavailable Unavailable DWIGHT, H FARRAH MD Unavailable Unavailable DWIGHT, H FARRAH MD Unavailable Unavailable DWIGHT, H FARRAH MD Unavailable Unavailable DWIGHT, H FARRAH MD Unavailable Unavailable Chaya Verduzco NP Unavailable Unavailable Re-disclosure Warning The records that you are about to access may contain information from federally-assisted alcohol or drug abuse programs. If such information is present, then the following federally mandated warning applies: This information has been disclosed to you from records protected by federal confidentiality rules (42 CFR part 2). The federal rules prohibit you from making any further disclosure of this information unless further disclosure is expressly permitted by the written consent of the person to whom it pertains or as otherwise permitted by 42 CFR part 2. A general authorization for the release of medical or other information is NOT sufficient for this purpose. The Federal rules restrict any use of the information to criminally investigate or prosecute any alcohol or drug abuse patient.The records that you are about to access may contain highly sensitive health information, the redisclosure of which is protected by Article 27-F of the [facility] Public Health law. If you continue you may have access to information: Regarding HIV / AIDS; Provided by facilities licensed or operated by the [facility] Office of Mental Health; or Provided by the [facility] Office for People With Developmental Disabilities. If such information is present, then the following [facility] mandated warning applies: This information has been disclosed to you from confidential records which are protected by state law. State law prohibits you from making any further disclosure of this information without the specific written consent of the person to whom it pertains, or as otherwise permitted by law. Any unauthorized further disclosure in violation of state law may result in a fine or long term sentence or both. A general authorization for the release of medical or other information is NOT sufficient authorization for further disc losure. Encounters Encounter Providers Location Date Indications Data Source(s ) Outpatient Attender: Chaya Verduzco NP 12/13 09:16:32 AM EST - 01/06/2021 10:06:43 AM EST [facility] ([facility] ) Outpatient Attender: FARRAH QUINTANILLA MD [place] [facility] 11:00:00 AM EDT [facility] Outpatient Attender: FARRAH QUINTANILLA MD [place] [facility] 10/2020 03:20:00 PM EDT [facility] ([facility] Outpatient Attender: FARRAH QUINTANILLA MD [place] [facility] 01:30:00 PM EDT [facility] Attender: Justina Edgar 02/19/2020 12:00:00 AM EST [facility] ([facility]) Psychiatric Diagnostic Evaluation (Non-Medical) Attender: Cony brito [facility] 02/18/2020 04:00:00 AM EST - 02/18/2020 04:00:00 AM EST [facility] ([facility]) Extended Individual Psychotherapy - 45 min Attender: Justina Edgar [facility] 01/27/2020 11:00:00 AM EST - 01/27/2020 11:00:00 AM EST [facility] ([facility]) Attender: Justina Edgar 01/27/2020 12:00:00 AM EST [facility] ([facility]) Outpatient Attender: NORM HARDWICK NP 020 01:34:00 PM EST - 01/14/2020 01:34:00 PM [facility] Brief Individual Psychotherapy - 30 min Attender: Gina James sybil [facility] 01/11/2020 01:30:00 AM EST - 01/11/2020 01:30:00 AM EST [facility] ([facility]) Attender: Gina Hunt 01/11/2020 12:00:00 AM EST [facility] ([facility]) Outpatient Attender: Venecia ANTUNEZ-BRUNO 04/2019 10:49:00 AM EST - 12/15/2019 10:49:00 AM [facility] Outpatient Attender: Venecia ANTUNEZ-BC 10/13 10:38:00 AM EDT - 11/05/2019 10:38:00 AM EDT [facility] Immunizations Vaccine Date Status Description Data Source(s) COVID-19 VACCINE Moderna 07/26/2020 12:00:00 AM EDT completed [facility] Vaccine Series Complete: YESThis Data wa s Submitted to [facility] Via [employer]. COVID-19 VACCINE Moderna 06/28/2020 12:00:00 AM EDT completed [facility] Vaccine Series Complete: NOThis Data was Submitted to [facility] Via [employer]. Medications Medication Brand Name Start Date Product Form Dose Route Admi nistrative Instructions Pharmacy Instructions Status Indications Reaction Description Data Source(s) Escitalopram 10 MG Oral Tablet [Lexapro] Lexapro 10/24/2020 12:00: 00 AM EDT ORAL active [facility] ([facility] 24 HR Glipizide 10 MG Extended Release Oral Tablet [Glucotro l] Glucotrol XL 07/20/2020 12:00:00 AM EDT ORAL active [facility] ([facility] 24 HR Glipizide 5 MG Extended Release Oral Tablet [Glucotrol ] Glucotrol XL 06/08/2020 12:00:00 AM EDT ORAL completed [facility] ([facility] Metformin HCL ER (Osm) Metformin HCL ER (Osm) 01/01/2020 12:00:[address] completed [facility] ([facility] Onetouch Ultra 01/01/2020 12:00:00 AM EST act logan [facility] ([facility] Glucometer 11/26/2019 12:00:00 AM EDT active [facility] ([facility]) Lancets 11/26/2019 12:00:00 AM EDT active [facility] ([facility]) Glucose Meter Test Strips Advanced 11/26/2019 12:00:00 AM EDT active [facility] ([facility]) Insurance Providers Payer name Policy type / Coverage type Policy ID Covered democrat ID Covered democrat's relationship to siu Policy Siu Plan Information MEDICARE [id number] SP [id number] [employer] [id number] S [id number] [place] [id number] S [id number] MEDICAID [id number] Medicaid Medicaid [id number] Self [id number] MED[place]ID [place] [id number] UN[employer] CP DUAL COMP -PHYSICIAN [id number] 18 [id number] UN[employer] CP DUAL COMPLETE -CLINIC [id number] [facility] MEDICARE PART A [facility] [id number] 18 [id number] MEDICAID -PHYSICIAN [id number] [facility] MEDICAID [id number] MEDICAID -O/P [id number] [facility] MCRO [id number] SP [id number] [facility](MCAID) O [id number] S [id number] MEDICAID M [id number] S [id number] MEDICARE C [id number] S [id number] MEDICAID [id number] SP [id number] MEDICARE [id number] SP [id number] Medicaid Commercial [id number] Self [id number] MEDICARE [id number] SP [id number] Medicaid Commercial [id number] Self [id number] MEDICAID [id number] S [id number] [employer] [id number] S [id number] [place] [id number] S [id number] MEDICARE PART A -O/P [id number] 18 [id number] [facility] MEDICAID [id number] SP [id number] [id number] SP [id number] [facility] [id number] SP [id number] [employer] MEDICARE COMPLETE - CLINIC [id number] Problems, Conditions, and Diagnoses Code Display Name Description Problem Type Effective Dates Data Source(s) 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 O ther usp (current) drug therapy Diagnosis 12/15/2019 10:49:00 AM [facility] E663 Overweight Overweight Diagnosis 12/15/2019 10:49:00 AM [facility] F419 Anxiety disorder, unspecified Anxiety disorder, unspec ified Diagnosis 12/15/2019 10:49:00 AM [facility] E7800 Pure hypercholesterolemia, unspecified P ure hypercholesterolemia, unspecified Diagnosis 12/15/2019 10:49:00 AM [facility] E1165 Type 2 diabetes mellitus with hyperglyce fernie Type 2 diabetes mellitus with hyperglycemia Diagnosis 12/15/2019 10:49:00 AM [facility] [id number] Diabetes mellitus Diabetes mellitus Problem 06/08/2020 12:00:00 AM EDT [facility] ([facility] Z72.0 Tobacco use Tobacco Use Disorder, Mild Condition 0 02/19/2020 12:00:00 AM EST [facility] ([facility]) F32.9 Major depressive disorder, single episod e, unspecified Unspecified depressive Disorder Condition 02/19/2020 12:00:00 AM EST [facility] ([facility]) Surgeries/Procedures Procedure Description Date Indications Data Source(s) OFFICE OUTPATIENT VISIT 25 MINUTES 10/24/2020 12:00:00 AM EDT [facility] ([facility] OFFICE OUTPATIENT VISIT 25 MINUTES 07/20/2020 12:00:00 AM EDT [facility] ([facility] INITIAL PREVENTIVE MEDICINE NEW PATIENT 40-64YRS 06/08 12:00:00 AM EDT [facility] ([facility] Psychiatric Diagnostic Evaluation (Non-Medical) 02/19/2020 12:00:00 AM EST - 02/19/2020 12:00:00 AM EST [facility] ([facility]) Psychiatric Diagnostic Evaluation (Non-Medical) 2020 12:00:00 AM EST [facility] ([facility]) Extended Individual Psychotherapy - 45 min 01/27/2020 12:00:00 AM EST - 01/27/2020 12:00:00 AM EST [facility] ([facility]) Extended Individual Psychotherapy - 45 min 12:00:00 AM EST [facility] ([facility]) Brief Individual Psychotherapy - 30 min 01/11/2020 12:00:00 AM EST - 01/11/2020 12:00:00 AM EST [facility] ([facility]) Brief Individual Psychotherapy - 30 min 01/11/2020 12: 00:00 AM EST [facility] ([facility]) Results ID Date Data Source [id number] 07/23/2020 03:16:00 PM EDT [facility] ([facility] Name Value Range Interpretation Code Description Data Rachel rce(s) Supporting Document(s) Thyrotropin [Units/volume] in Serum or Plasma 1.980 uIU/ML 0. 358-3.740 Normal (applies to non-numeric results) [facility] ID Date Data Source [id number] 07/23/2020 03:16:00 PM EDT [facility] ([facility] Name Value Range Interpretation Code Description Data Rachel rce(s) Supporting Document(s) Triglycerides Level 165 mg/dL Above high normal [facility] ([facility] Cholesterol Level 149 mg/dL Normal (applies to non-numeri c results) [facility] ([facility] HDL Cholesterol 35 mg/dL Below low normal [facility] ([facility] LDL Cholesterol 81 mg/dL Normal (applies to non-numeric results) [facility] ([facility] Non-HDL-C 114 mg/dL Normal (applies to non-numeric resul ts) [facility] Cholesterol Risk Ratio 4.257 Normal (applies to non-n umeric results) [facility] ID Date Data Source [id number] 07/23/2020 03:16:00 PM EDT [facility] ([facility] Name Value Range Interpretation Code Description Data Rachel rce(s) Supporting Document(s) Glucose, Fasting 219 mg/dL 70-100 Above high normal [facility] ([facility] Blood Urea Nitrogen 9 mg/dL 7-18 Normal (applies to non-nume vicky results) [facility] ([facility] Creatinine For GFR 0.83 mg/dL 0.55-1.30 Normal (applies to non -numeric results) [facility] ([facility] Sodium Level 139 meq/L 136-145 Normal (applies to non-numeric res ults) [facility] ([facility] Glomerular Filtration Rate Laboratory test result Normal (applies to non- numeric results) [facility] ([facility] ) <content>Units are mL/min/1.73 m2</content>
<content></content>
<content>Chronic Kidney Disease Staging per NKF:</content>
<content></content>
<content>Stage I & II GFR >=60 Normal to Mildly Decreased</content>
<content>Stage III GFR 30- 59 Moderately Decreased</content>
<content>Stage IV GFR 15-29 Severely Decreased</content>
<content>Stage V GFR <15 Very Little GFR Left</content>
<content>ESRD GFR <15 on RISK MANAGEMENT SPECIALIST</content>
<content></content> Potassium Serum 4.0 meq/L 3.5-5.1 Normal (applies to non-numeric results) [facility] ([facility] Carbon Dioxide Level 25 meq/L 21-32 Normal (applies to non-num funmilayo results) [facility] ([facility] Chloride Level 108 meq/L 98-107 Above high normal [facility] ([facility] Calcium Level 8.1 mg/dL 8.5-10.1 Below low normal [facility] T ([facility] Anion Gap 6 meq/L 8-16 Below low normal [facility] ( [facility] Alt/SGPT 49 U/L 12-78 Normal (applies to non-numeric resul ts) [facility] ([facility] Ast/Sgot 34 U/L 7-37 Normal (applies to non-numeric resul ts) [facility] ([facility] Alkaline Phosphatase 131 U/L 45-117 Above high normal [facility] ([facility] Bilirubin,Total 0.2 mg/dL 0.2-1.0 Normal (applies to non-numeric results) [facility] ([facility] Total Protein 7.0 GM/DL 6.4-8.2 Normal (applies to non-numeric re sults) [facility] ([facility] Albumin 3.2 GM/DL 3.2-5.2 Normal (applies to non-numeric resul ts) [facility] ([facility] Albumin/Globulin Ratio 0.8 1.2-2.2 Below low normal [facility] ([facility] ID Date Data Source [id number] 07/23/2020 03:16:00 PM EDT [facility] ([facility] Name Value Range Interpretation Code Description Data Rachel rce(s) Supporting Document(s) Hemoglobin A1c 7.3 % Normal (applies to non-numeric r esults) [facility] ([facility] <content>REFERENCE RANGES:</content><br/ ><content></content>
<content><=5.6% NORMAL</content>
<content>5.7-6.4% SUGGESTS IMPAIRED GLUCOSE METABOLISM/PREDIABETIC</content>
<content>>= 6.5% ABNORMAL</content>
<content></content> Estimated Average Glucose 163 mg/dL 60-110 Above high normal [facility] ([facility] ID Date Data Source [id number] 07/23/2020 03:16:00 PM EDT [facility] ([facility] Name Value Range Interpretation Code Description Data Rachel rce(s) Supporting Document(s) Red Blood Count 4.89 10 4.00-5.40 Normal (applies to non-numeric results) [facility] ([facility] Hemoglobin 14.1 g/dL 12.0-15.5 Normal (applies to non-numeric resul ts) [facility] ([facility] White Blood Count 11.4 10 4.0-10.0 Above high normal [facility] ([facility] Mean Corpuscular Volume 89.8 fl 80.0-96.0 Normal ( applies to non-numeric results) [facility] ([facility] Hematocrit 43.9 % 36.0-47.0 Normal (applies to non-numeric resul ts) [facility] ([facility] Mean Corpuscular Hemoglobin 28.8 pg 27.0-33.0 Norm al (applies to non-numeric results) [facility] ([facility] Mean Corpuscular HGB Conc 32.1 g/dL 32.0-36.5 Normal (applies to non-numeric results) [facility] ([facility] Red Cell Distribution Width 13.6 % 11.5-14.5 Norm al (applies to non-numeric results) [facility] ([facility] ) Platelet Count, Automated 261 10 150-450 Normal (applies to non-numeric results) [facility] ([facility] Lymph % 24.9 % 24.0-44.0 Normal (applies to non-numeric resul ts) [facility] ([facility] Neutrophils % 67.7 % 36.0-66.0 Above high normal [facility] NT ([facility] Eos % 1.8 % 0.0-3.0 Normal (applies to non-numeric resul ts) [facility] ([facility] [facility] [place] % 4.7 % 2.0-8.0 Normal (applies to non-numeric resul ts) [facility] ([facility] Immature Granulocyte % 0.4 % 0-3.0 Normal (applies to non-n umeric results) [facility] ([facility] Baso % 0.5 % 0.0-1.0 Normal (applies to non-numeric resul ts) [facility] ([facility] Neutrophils # 7.7 10 1.5-8.5 Normal (applies to non-numeric re sults) [facility] ([facility] Lymph # 2.8 10 1.5-5.0 Normal (applies to non-numeric resul ts) [facility] ([facility] Nucleated Red Blood Cell % 0.0 % 0-0 Normal (applies to n on-numeric results) [facility] ([facility] Eos # 0.2 10 0.0-0.5 Normal (applies to non-numeric resul ts) [facility] ([facility] [place] # 0.5 10 0.0-0.8 Normal (applies to non-numeric resul ts) [facility] ([facility] Baso # 0.1 10 0.0-0.2 Normal (applies to non-numeric resul ts) [facility] ([facility] Procedure Social History Code Duration Value Status Description Data Source(s ) Smoking 02/19/2020 12:00:00 AM EST Unknown if ever smoked comp leted Unknown if ever smoked [facility] ([facility]) Smoking 01/27/2020 12:00:00 AM EST Unknown if ever smoked comp leted Unknown if ever smoked [facility] ([facility]) Smoking 01/11/2020 12:00:00 AM EST Unknown if ever smoked comp leted Unknown if ever smoked [facility] ([facility]) Vital Signs ID Date Data Source UNK Name Value Range Interpretation Code Description Data Source(s) Diastolic blood pressure 74 mm[Hg] 74 mm[Hg] [facility] ([facility] Systolic blood pressure 124 mm[Hg] 124 mm[Hg] M EDENT ([facility] Body temperature 96.7 [degF] 96.7 [degF] [facility] ([facility] Respiratory rate 16 /min 16 /min [facility] ( [facility] Heart rate 78 /min 78 /min [facility] ([facility] Body height 73 [in_i] 73 [in_i] [facility] ([facility] 6'1" Body weight 330.00 [lb_av] 330.00 [lb_av] [facility] T ([facility] [place] body weight 165 [lb_av] 165 [lb_av] [facility] T ([facility] Body mass index (BMI) [Ratio] 43.5 kg/m2 43.5 k g/m2 [facility] ([facility] Oxygen saturation in Arterial blood by Pulse oximetry 98 % 98 % [facility] ([facility] Body mass index (BMI) [Ratio] 45.0 kg/m2 45.0 k g/m2 [facility] ([facility] Diastolic blood pressure 60 mm[Hg] 60 mm[Hg] [facility] ([facility] Body temperature 96.7 [degF] 96.7 [degF] [facility] ([facility] Systolic blood pressure 106 mm[Hg] 106 mm[Hg] M EDENT ([facility] Body height 73 [in_i] 73 [in_i] [facility] ([facility] 6'1" Body weight 341.00 [lb_av] 341.00 [lb_av] [facility] T ([facility] [place] body weight 165 [lb_av] 165 [lb_av] [facility] T ([facility] Oxygen saturation in Arterial blood by Pulse oximetry 96 % 96 % [facility] ([facility] Heart rate 88 /min 88 /min [facility] ([facility] Respiratory rate 18 /min 18 /min [facility] ( [facility] Systolic blood pressure 136 mm[Hg] 136 mm[Hg] M EDENT ([facility] Respiratory rate 20 /min 20 /min [facility] ( [facility] Body height 73 [in_i] 73 [in_i] [facility] ([facility] 6'1" Diastolic blood pressure 70 mm[Hg] 70 mm[Hg] [facility] ([facility] Body temperature 96.4 [degF] 96.4 [degF] [facility] ([facility] Heart rate 90 /min 90 /min [facility] ([facility] Body weight 345.00 [lb_av] 345.00 [lb_av] MED[facility] T ([facility] [place] body weight 165 [lb_av] 165 [lb_av] [facility] T ([facility] Body mass index (BMI) [Ratio] 45.5 kg/m2 45.5 k g/m2 [facility] ([facility] Oxygen saturation in Arterial blood by Pulse oximetry 98 % 98 % [facility] ([facility] Systolic blood pressure 124 mm[Hg] 124 mm[Hg] M EDENT ([facility]) Diastolic blood pressure 80 mm[Hg] 80 mm[Hg] [facility] ([facility]) Heart rate 78 /min 78 /min [facility] ([facility]) Body temperature 96.6 [degF] 96.6 [degF] [facility] ([facility]) Respiratory rate 20 /min 20 /min [facility] ( [facility]) Oxygen saturation in Arterial blood by Pulse oximetry 98 % 98 % [facility] ([facility]) Body weight 332.25 [lb_av] 332.25 [lb_av] MED[facility] T ([facility]) Body weight 150.709 kg 150.709 kg [facility] ([facility]) Body height 72 [in_i] 72 [in_i] [facility] ([facility]) 6'0" Body mass index (BMI) [Ratio] 45.1 kg/m2 45.1 k g/m2 [facility] ([facility]) Body surface area Derived from formula 2.64 m2 2.64 m2 [facility] ([facility])
[2021-01-06] MEDS ORDERED: ASPIRIN 81 MG CHEW TABLET PO ONE (10:45)
[2021-01-06] MEDS ORDERED: LEXA1TAB (10:53)
[2021-01-06] MEDS ORDERED: GLIP10TA18 (10:53)
--- OUTSIDE RECORDS SUMMARY | 2021-01-06 11:30 | CCD ---
Author Author [facility] Organization [facility] Address Unknown Phone Unavailable Care Team Providers Care Clinic Assistant Name Role Phone Marine Lin ANP-BC Unavailable Unavailable Marine Lin ANP-BC Unavailable Unavailable Marine Linn ANP-BC Unavailable Unavailable Marine Linn ANP-BC Unavailable Unavailable Marine Linn ANP-BC Unavailable Unavailable Marine Lin Venecia ANP-BC Unavailable Unavailable Marine Lin Venecia ANP-BC Unavailable Unavailable Marine Lin Venecia ANP-BC Unavailable Unavailable Marine Linn ANP-BC Unavailable Unavailable Marine Lin Venecia ANP-BC [...] Unavailable Marine Lin Venecia ANP-BC Unavailable Unavailable FrarahMarine Venecia ANP-BC Unavailable Unavailable FarrahMarine Venecia ANP-BC Unavailable Unavailable FarrahMarine Venecia ANP-BC Unavailable Unavailable FarrahMarine Venecia ANP-BC Unavailable Unavailable Marine Lin Venecia ANP-BC Unavailable Unavailable Farrah, Marine Venecia [...] Edgar Unavailable Unavailable HARDWICK, MARK ANTHONY NORM DRYING ROOM SUPERVISOR Unavailable Unavailable HARDWICK, MARK ANTHONY NORM DRYING ROOM SUPERVISOR Unavailable Unavailable HARDWICK, MARK ANTHONY NORM DRYING ROOM SUPERVISOR Unavailable Unavailable HARDWICK, MARK ANTHONY NORM DRYING ROOM SUPERVISOR Unavailable Unavailable HARDWICK, MARK ANTHONY NORM DRYING ROOM SUPERVISOR Unavailable Unavailable HARDWICK, MARK ANTHONY NORM DRYING ROOM SUPERVISOR Unavailable Unavailable HARDWICK, MARK ANTHONY NORM DRYING ROOM SUPERVISOR Unavailable Unavailable HARDWICK, MARK ANTHONY NORM DRYING ROOM SUPERVISOR Unavailable Unavailable HARDWICK, MARK ANTHONY NORM DRYING ROOM SUPERVISOR Unavailable Unavailable HARDWICK, MARK ANTHONY NORM DRYING ROOM SUPERVISOR Unavailable Unavailable HARDWICK, MARK ANTHONY NORM DRYING ROOM SUPERVISOR Unavailable Unavailable HARDWICK, MARK ANTHONY NORM DRYING ROOM SUPERVISOR Unavailable Unavailable HARDWICK, MARK ANTHONY NORM DRYING ROOM SUPERVISOR Unavailable Unavailable HARDWICK, MARK ANTHONY NORM DRYING ROOM SUPERVISOR Unavailable Unavailable HARDWICK, MARK ANTHONY NORM DRYING ROOM SUPERVISOR Unavailable Unavailable HARDWICK, MARK ANTHONY NORM DRYING ROOM SUPERVISOR Unavailable Unavailable HARDWICK, MARK ANTHONY NORM DRYING ROOM SUPERVISOR Unavailable Unavailable HARDWICK, MARK ANTHONY NORM DRYING ROOM SUPERVISOR Unavailable Unavailable HARDWICK, MARK ANTHONY NORM DRYING ROOM SUPERVISOR Unavailable Unavailable HARDWICK, MARK ANTHONY NORM DRYING ROOM SUPERVISOR Unavailable Unavailable HARDWICK, MARK ANTHONY NORM DRYING ROOM SUPERVISOR Unavailable Unavailable HARDWICK, MARK ANTHONY NORM DRYING ROOM SUPERVISOR Unavailable Unavailable HARDWICK, MARK ANTHONY NORM DRYING ROOM SUPERVISOR Unavailable Unavailable Maday QUINTANILLA MD Unavailable Unavailable [...] Unavailable Maday QUINTANILLA MD Unavailable Unavailable Maday QUINTNAILLA MD Unavailable Unavailable Maday QUINTANILLA MD Unavailable [...] is protected by Article 27-F of the [facility] Public Health law. If you continue you may have access to information: Regarding HIV / AIDS; Provided by facilities licensed or operated by the [facility] Office of Mental Health; or Provided by the [facility] Office for People With Developmental Disabilities. If such information is present, then the following [facility] mandated warning applies: This information has been [...] law may result in a fine or mcc sentence or both. A general authorization for the release of medical or other information is NOT sufficient authorization for further disc losure. Encounters Encounter Providers Location Date Indications Data Source(s ) Outpatient Attender: Chaya Verduzco NP 12/13 09:16:32 AM EST - 01/06/2021 10:06:43 AM EST [facility] ([facility] ) Outpatient Attender: FARRAH QUINTANILLA MD [place] [facility] 11:00:00 AM EDT [facility] Outpatient Attender: FARRAH QUINTANILLA MD [place] [facility] 10/2020 03:20:00 PM EDT [facility] ([facility] Outpatient Attender: FARRAH QUINTANILLA MD [place] [facility] 01:30:00 PM EDT [facility] ([facility] Attender: Justina Edgar 02/19/2020 12:00:00 AM EST [facility] ([facility]) Psychiatric Diagnostic Evaluation (Non-Medical) Attender: Cony brito [facility] 02/18/2020 04:00:00 AM EST - 02/18/2020 04:00:00 AM EST [facility] ([facility]) Extended Individual Psychotherapy - 45 min Attender: Justina Edgar [facility] 01/27/2020 11:00:00 AM EST - 01/27/2020 11:00:00 AM EST [facility] ([facility]) Attender: Justina Edgar 01/27/2020 12:00:00 AM EST [facility] ([facility]) Outpatient Attender: NORM HARDWICK NP 12/03/2 020 01:34:00 PM EST - 01/14/2020 01:34:00 PM [facility] Brief Individual Psychotherapy - 30 min Attender: Gina devine [facility] 01/11/2020 01:30:00 AM EST - 01/11/2020 01:30:00 AM EST [facility] ([facility]) Attender: Gina Hunt 01/11/2020 12:00:00 AM EST [facility] ([facility]) Outpatient Attender: Venecia ANTUNEZ-BC 0 04/2019 10:49:00 AM EST - 12/15/2019 10:49:00 AM EST [facility] Outpatient Attender: Venecia Lin ANP-BC 10/13 10:38:00 AM EDT - 11/05/2019 10:38:00 AM EDT [facility] Immunizations Vaccine Date Status Description Data Source(s) COVID-19 VACCINE Moderna 07/26/2020 12:00:00 AM EDT completed [facility] Vaccine Series Complete: YESThis Data wa s Submitted to [facility]. COVID-19 VACCINE Moderna 06/28/2020 12:00:00 AM EDT completed [facility] Vaccine Series Complete: NOThis Data was Submitted to [facility]. Medications Medication Brand Name Start Date Product Form Dose Route Admi nistrative Instructions Pharmacy Instructions Status Indications Reaction Description Data Source(s) Escitalopram 10 MG Oral Tablet [Lexapro] Lexapro 10/24/2020 12:00: 00 AM EDT ORAL active [facility] ([facility] 24 HR Glipizide 10 MG Extended Release Oral Tablet [Glucotro l] Glucotrol XL 07/20/2020 12:00:00 AM EDT ORAL active [facility] ([facility] 24 HR Glipizide 5 MG Extended Release Oral Tablet [Glucotrol ] Glucotrol XL 06/08/2020 12:00:00 AM EDT ORAL completed [facility] ([facility] Metformin HCL ER (Osm) Metformin HCL ER (Osm) 01/01/2020 12:00:[address] completed [facility] ([facility] Onetouch Ultra 01/01/2020 12:00:00 AM EST act logan [facility] ([facility] Glucometer 11/26/2019 12:00:00 AM EDT active [facility] ([facility]) Lancets 11/26/2019 12:00:00 AM EDT active [facility] ([facility]) Glucose Meter Test Strips Advanced 11/26/2019 12:00:00 AM EDT active [facility] ([facility]) Insurance Providers Payer name Policy type / Coverage type Policy ID Covered green party ID Covered green party's relationship to siu Policy Siu Plan Information MEDICARE [id number] SP [id number] [employer] [id number] S [id number] [place] [id number] S [id number] MEDICAID [id number] S [id number] Medicaid Medicaid [id number] Self [id number] MEDICAID CO [id number] UNHC CP DUAL COMP -PHYSICIAN [id number] 18 [id number] UNHC CP DUAL COMPLETE -CLINIC [id number] [id number] [facility] MEDICARE PART A [facility] [id number] 18 [id number] MEDICAID -PHYSICIAN [id number] [facility] MEDICAID [id number] MEDICAID -O/P [id number] [facility] MCRO [id number] SP [id number] [facility](MCAID) O [id number] S [id number] MEDICAID M [id number] S [id number] MEDICARE C [id number] S [id number] MEDICAID [id number] SP [id number] MEDICARE [id number] SP [id number] Medicaid Commercial [id number] Self [id number] MEDICARE [id number] SP [id number] Medicaid Commercial [id number] Self [id number] MEDICAID [id number] S [id number] [employer] [id number] S [id number] [place]IC[place] [id number] S [id number] MEDICARE PART A -O/P [id number] 18 [id number] [facility] MEDICAID [id number] SP [id number] C [facility] [id number] SP [id number] [facility] [id number] SP [id number] [employer] MEDICARE COMPLETE - CLINIC [id number] 18 [id number] Problems, Conditions, and Diagnoses Code Display Name Description Problem Type Effective Dates Data Source(s) 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 Diagnosis 12/15/2019 10:49:00 AM [facility] E663 Overweight Overweight Diagnosis 12/15/2019 10:49:00 AM [facility] F419 Anxiety disorder, unspecified Anxiety disorder, unspec ified Diagnosis 12/15/2019 10:49:00 AM [facility] E7800 Pure hypercholesterolemia, unspecified P ure hypercholesterolemia, unspecified Diagnosis 12/15/2019 10:49:00 AM [facility] E1165 Type 2 diabetes mellitus with hyperglyce fernie Type 2 diabetes mellitus with hyperglycemia Diagnosis 12/15/2019 10:49:00 AM [facility] [id number] Diabetes mellitus Diabetes mellitus Problem 06/08/2020 12:00:00 AM EDT [facility] ([facility] Z72.0 Tobacco use Tobacco Use Disorder, Mild Condition 0 02/19/2020 12:00:00 AM EST [facility] ([facility]) F32.9 Major depressive disorder, single episod e, unspecified Unspecified depressive Disorder Condition 02/19/2020 12:00:00 AM EST [facility] ([facility]) Surgeries/Procedures Procedure Description Date Indications Data Source(s) OFFICE OUTPATIENT VISIT 25 MINUTES 10/24/2020 12:00:00 AM EDT [facility] ([facility] OFFICE OUTPATIENT VISIT 25 MINUTES 07/20/2020 12:00:00 AM EDT [facility] ([facility] INITIAL PREVENTIVE MEDICINE NEW PATIENT 40-64YRS 06/08 12:00:00 AM EDT [facility] ([facility] Psychiatric Diagnostic Evaluation (Non-Medical) 02/19/2020 12:00:00 AM EST - 02/19/2020 12:00:00 AM EST [facility] ([facility]) Psychiatric Diagnostic Evaluation (Non-Medical) 2020 12:00:00 AM EST [facility] ([facility]) Extended Individual Psychotherapy - 45 min 01/27/2020 12:00:00 AM EST - 01/27/2020 12:00:00 AM EST [facility] ([facility]) Extended Individual Psychotherapy - 45 min 12:00:00 AM EST [facility] ([facility]) Brief Individual Psychotherapy - 30 min 01/11/2020 12:00:00 AM EST - 01/11/2020 12:00:00 AM EST [facility] ([facility]) Brief Individual Psychotherapy - 30 min 01/11/2020 12: 00:00 AM EST [facility] ([facility]) Results ID Date Data Source [id number] 07/23/2020 03:16:00 PM EDT [facility] ([facility] Name Value Range Interpretation Code Description Data Rachel rce(s) Supporting Document(s) Thyrotropin [Units/volume] in Serum or Plasma 1.980 uIU/ML 0. 358-3.740 Normal (applies to non-numeric results) [facility] ID Date Data Source [id number] 07/23/2020 03:16:00 PM EDT [facility] ([facility] Name Value [...] mg/dL Normal (applies to non-numeric results) [facility] ([facility] Non-HDL-C 114 mg/dL Normal (applies to non-numeric resul ts) [facility] ([facility] Cholesterol Risk Ratio 4.257 Normal (applies to non-n umeric results) [facility] ([facility] ID Date Data Source [id number] 07/23/2020 03:16:00 PM EDT [facility] ([facility] Name Value Range Interpretation Code Description Data Rachel rce(s) Supporting Document(s) Glucose, Fasting 219 mg/dL 70-100 Above high normal M EDALINE ([facility] Blood Urea Nitrogen 9 mg/dL 7-18 Normal (applies to non-nume vicky results) [facility] ([facility] Creatinine For GFR 0.83 mg/dL 0.55-1.30 Normal (applies to non -numeric results) [facility] ([facility] Sodium Level 139 meq/L 136-145 Normal (applies to non-numeric res ults) [facility] ( [facility] Glomerular Filtration Rate Laboratory test result Normal (applies to non- numeric results) [facility] <content>Units are mL/min/1.73 m2</content>
<content></content>
<content>Chronic Kidney Disease Staging per NKF:</content>
<content></content>
<content>Stage I & II GFR >=60 Normal to Mildly Decreased</content>
<content>Stage III GFR 30- 59 Moderately Decreased</content>
<content>Stage IV GFR 15-29 Severely Decreased</content>
<content>Stage V GFR <15 Very Little GFR Left</content>
<content>ESRD GFR <15 on TEEN COUNSELOR</content>
<content></content> Potassium Serum 4.0 meq/L 3.5-5.1 Normal (applies to non-numeric results) [facility] ([facility] Carbon Dioxide Level 25 meq/L 21-32 Normal (applies to non-num funmilayo results) [facility] ([facility] Chloride Level 108 meq/L 98-107 Above high normal MED ENT ([facility] Calcium Level 8.1 mg/dL 8.5-10.1 Below low normal MEDEN T ([facility] Anion Gap 6 meq/L 8-16 Below low normal [facility] ( [facility] Alt/SGPT 49 U/L 12-78 Normal (applies to non-numeric resul ts) [facility] ([facility] Ast/Sgot 34 U/L 7-37 Normal (applies to non-numeric resul ts) [facility] ([facility] Alkaline Phosphatase 131 U/L 45-117 Above high normal [facility] ([facility] Bilirubin,Total 0.2 mg/dL 0.2-1.0 Normal (applies to non-numeric results) [facility] ([facility] Total Protein 7.0 GM/DL 6.4-8.2 Normal (applies to non-numeric re sults) [facility] ([facility] Albumin 3.2 GM/DL 3.2-5.2 Normal (applies to non-numeric resul ts) [facility] ([facility] Albumin/Globulin Ratio 0.8 1.2-2.2 Below low normal [facility] ([facility] ID Date Data Source [id number] 07/23/2020 03:16:00 PM EDT [facility] ([facility] Name Value Range Interpretation Code Description Data Rachel rce(s) Supporting Document(s) Hemoglobin A1c 7.3 % Normal (applies to non-numeric r esults) [facility] ([facility] <content>REFERENCE RANGES:</content><br/ ><content></content>
<content><=5.6% NORMAL</content>
<content>5.7-6.4% SUGGESTS IMPAIRED GLUCOSE METABOLISM/PREDIABETIC</content>
<content>>= 6.5% ABNORMAL</content>
<content></content> Estimated Average Glucose 163 mg/dL 60-110 Above high normal [facility] ([facility] ID Date Data Source [id number] 07/23/2020 03:16:00 PM EDT [facility] ([facility] Name Value Range Interpretation Code Description Data Rachel rce(s) Supporting Document(s) Red Blood Count 4.89 10 4.00-5.40 Normal (applies to non-numeric results) [facility] ([facility] Hemoglobin 14.1 g/dL 12.0-15.5 Normal (applies to non-numeric resul ts) [facility] ([facility] White Blood Count 11.4 10 4.0-10.0 Above high normal [facility] ([facility] Mean Corpuscular Volume 89.8 fl 80.0-96.0 Normal ( applies to non-numeric results) [facility] ([facility] ) Hematocrit 43.9 % 36.0-47.0 Normal (applies to non-numeric resul ts) [facility] ([facility] Mean Corpuscular Hemoglobin 28.8 pg 27.0-33.0 Norm al (applies to non-numeric results) [facility] ([facility] ) Mean Corpuscular HGB Conc 32.1 g/dL 32.0-36.5 Normal (applies to non-numeric results) [facility] ([facility] Red Cell Distribution Width 13.6 % 11.5-14.5 Norm al (applies to non-numeric results) [facility] ([facility] ) Platelet Count, Automated 261 10 150-450 Normal (applies to non-numeric results) [facility] ([facility] ) Lymph % 24.9 % 24.0-44.0 Normal (applies to non-numeric resul ts) [facility] ([facility] Neutrophils % 67.7 % 36.0-66.0 Above high normal MEDE NT ([facility] Eos % 1.8 % 0.0-3.0 Normal (applies to non-numeric resul ts) [facility] ([facility] [place] % 4.7 % 2.0-8.0 Normal (applies to non-numeric resul ts) [facility] ([facility] Immature Granulocyte % 0.4 % 0-3.0 Normal (applies to non-n umeric results) [facility] ([facility] Baso % 0.5 % 0.0-1.0 Normal (applies to non-numeric resul ts) [facility] ([facility] Neutrophils # 7.7 10 1.5-8.5 Normal (applies to non-numeric re sults) [facility] ([facility] Lymph # 2.8 10 1.5-5.0 Normal (applies to non-numeric resul ts) [facility] ([facility] Nucleated Red Blood Cell % 0.0 % 0-0 Normal (applies to n on-numeric results) [facility] ([facility] Eos # 0.2 10 0.0-0.5 Normal (applies to non-numeric resul ts) [facility] ([facility] [place] # 0.5 10 0.0-0.8 Normal (applies to non-numeric resul ts) [facility] ([facility] Baso # 0.1 10 0.0-0.2 Normal (applies to non-numeric resul ts) [facility] ([facility] Procedure Social History Code Duration Value Status Description Data Source(s ) Smoking 02/19/2020 12:00:00 AM EST Unknown if ever smoked comp leted Unknown if ever smoked [facility] ([facility]) Smoking 01/27/2020 12:00:00 AM EST Unknown if ever smoked comp leted Unknown if ever smoked [facility] ([facility]) Smoking 01/11/2020 12:00:00 AM EST Unknown if ever smoked comp leted Unknown if ever smoked [facility] ([facility]) Vital Signs ID Date Data Source UNK Name Value Range Interpretation Code Description Data Source(s) Systolic blood pressure 124 mm[Hg] 124 mm[Hg] M EDENT ([facility] Respiratory rate 16 /min 16 /min [facility] ( [facility] Body height 73 [in_i] 73 [in_i] [facility] ([facility] 6'1" Body weight 330.00 [lb_av] 330.00 [lb_av] MEDEN T ([facility] Hobbs body weight 165 [lb_av] 165 [lb_av] [facility] T ([facility] Body mass index (BMI) [Ratio] 43.5 kg/m2 43.5 k g/m2 [facility] ([facility] Oxygen saturation in Arterial blood by Pulse oximetry 98 % 98 % [facility] ([facility] Diastolic blood pressure 74 mm[Hg] 74 mm[Hg] [facility] ([facility] Body temperature 96.7 [degF] 96.7 [degF] [facility] ([facility] Heart rate 78 /min 78 /min [facility] ([facility] Body mass index (BMI) [Ratio] 45.0 kg/m2 45.0 k g/m2 [facility] ([facility] Diastolic blood pressure 60 mm[Hg] 60 mm[Hg] [facility] ([facility] Systolic blood pressure 106 mm[Hg] 106 mm[Hg] M EDENT ([facility] Body temperature 96.7 [degF] 96.7 [degF] [facility] ([facility] Body height 73 [in_i] 73 [in_i] [facility] ([facility] 6'1" Body weight 341.00 [lb_av] 341.00 [lb_av] MED[facility] T ([facility] Hobbs body weight 165 [lb_av] 165 [lb_av] MED[facility] T ([facility] Oxygen saturation in Arterial blood by Pulse oximetry 96 % 96 % [facility] ([facility] Heart rate 88 /min 88 /min [facility] ([facility] Respiratory rate 18 /min 18 /min [facility] ( [facility] Systolic blood pressure 136 mm[Hg] 136 mm[Hg] M EDENT ([facility] Respiratory rate 20 /min 20 /min [facility] ( [facility] Body height 73 [in_i] 73 [in_i] [facility] ([facility] 6'1" Diastolic blood pressure 70 mm[Hg] 70 mm[Hg] [facility] ([facility] Body temperature 96.4 [degF] 96.4 [degF] [facility] ([facility] Heart rate 90 /min 90 /min [facility] ([facility] Body weight 345.00 [lb_av] 345.00 [lb_av] MEDEN T ([facility] Hobbs body weight 165 [lb_av] 165 [lb_av] MEDEN T ([facility] Body mass index (BMI) [Ratio] 45.5 kg/m2 45.5 k g/m2 [facility] ([facility] Oxygen saturation in Arterial blood by Pulse oximetry 98 % 98 % [facility] ([facility] Systolic blood pressure 124 mm[Hg] 124 mm[Hg] M EDENT ([facility]) Diastolic blood pressure 80 mm[Hg] 80 mm[Hg] [facility] ([facility]) Heart rate 78 /min 78 /min [facility] ([facility]) Body temperature 96.6 [degF] 96.6 [degF] [facility] ([facility]) Respiratory rate 20 /min 20 /min [facility] ( [facility]) Oxygen saturation in Arterial blood by Pulse oximetry 98 % 98 % [facility] ([facility]) Body weight 332.25 [lb_av] 332.25 [lb_av] MEDEN T ([facility]) Body weight 150.709 kg 150.709 kg [facility] ([facility]) Body height 72 [in_i] 72 [in_i] [facility] ([facility]) 6'0" Body mass index (BMI) [Ratio] 45.1 kg/m2 45.1 k g/m2 [facility] ([facility]) Body surface area Derived from formula 2.64 m2 2.64 m2 [facility] ([facility])
[2021-01-06 11:37] LABS: BASO # 0.1 10^3/uL (0.0-0.2); BASO % 0.5 % (0.0-1.0); EOS # 0.1 10^3/uL (0.0-0.5); HEMATOCRIT 43.8 % (36.0-47.0); LYMPH # 2.9 10^3/uL (1.5-5.0); LYMPH % 22.7 % (24.0-44.0); MEAN CORPUSCULAR HEMOGLOBIN 28.8 pg (27.0-33.0); MEAN CORPUSCULAR VOLUME 90.1 fl (80.0-96.0); MONO # 0.5 10^3/uL (0.0-0.8); MONO % 4.2 % (2.0-8.0); NEUTROPHILS # 9.1 10^3/uL (1.5-8.5); NEUTROPHILS % 71.2 % (36.0-66.0); PLATELET COUNT, AUTOMATED 230 10^3/uL (150-450); RED BLOOD COUNT 4.86 10^6/uL (4.00-5.40); WHITE BLOOD COUNT 12.8 10^3/uL (4.0-10.0)
--- NOTE | 2021-01-06 11:51 | REP ---
INDICATION: CHEST PAIN COMPARISON: None. TECHNIQUE: Portable AP view of the chest FINDINGS: The mediastinum and cardiac silhouette are within normal limits for portable technique. The lung bruno are clear without acute consolidation, effusion, or pneumothorax. Skeletal structures are intact. IMPRESSION: No acute cardiopulmonary process appreciated. <Electronically signed by Terell Pierce > 01/06/21 [id number]
[2021-01-06 12:16] LABS: ALBUMIN 3.1 GM/DL (3.2-5.2); ALT/SGPT 40 U/L (12-78); BILIRUBIN,DIRECT < 0.1 MG/DL (0.0-0.2); BILIRUBIN,TOTAL 0.2 MG/DL (0.2-1.0); LIPASE 160 U/L (73-393); TOTAL PROTEIN 6.7 GM/DL (6.4-8.2)
[2021-01-06] MEDS ORDERED: ISOVUE-370 76% 100ML VIAL As Ordered ONE (12:38)
--- NOTE | 2021-01-06 13:01 | REP ---
INDICATION: r/o PE COMPARISON: None. TECHNIQUE: Axial contrast enhanced images from the thoracic inlet to the upper abdomen using pulmonary embolus technique with multiplanar re-formations. 75 ml Isovue 370 intravenous contrast material administered without complication. This CT examination was performed using the following dose reduction techniques: Automated exposure control, adjustment of mA and/or kv according to the patient's size, and use of iterative reconstruction technique. FINDINGS: Satisfactory enhancement of the pulmonary vasculature is achieved and no filling defects are identified to suggest pulmonary embolus. Further evaluation of the mediastinum demonstrates normal thoracic aorta, heart and pericardium. The bilateral lung bruno are well aerated and clear without consolidation pleural effusion or pneumothorax. Tracheobronchial tree is patent. No nodule or mass lesion is identified. No adenopathy noted. Surrounding musculoskeletal structures intact IMPRESSION: No evidence for pulmonary embolus. No acute mediastinal or pleural parenchymal process. <Electronically signed by Terell Pierce > 01/06/21 [id number]
[2021-01-06 14:05] VITALS: BP 145/82
--- NOTE | 2021-01-07 10:24 | ECGEPIP ---
[facility] - ED Test Date: 2021-01-06 Pat Name: BEAU CRAWLEY Department: Room: - Gender: Female Senior Strategy Analyst: SALVATORE : 1975 Requested By: Brennen Alcantara Order Number: [id number] Reading MD: Kassidy Terrazas Measurements Intervals [place] Rate: 62 P: 63 SD: 142 QRS: 20 QRSD: 86 T: 22 QT: 418 QTc: 424 Interpretive Statements Normal sinus rhythm NSTTW abnormalities No prior Electronically Signed on 01-07-2021 10:24:20 EST by Kassidy Terrazas
== END 2021-01-06 14:06 | disposition home or self-care (01) ==
LOC: M ED 10:33
DX: R07.89 Other chest pain (principal); F41.9 Anxiety disorder, unspecified; E11.9 Type 2 diabetes mellitus without complications; F33.9 Major depressive disorder, recurrent, unspecified; Z79.899 Other long term (current) drug therapy; Z88.0 Allergy status to penicillin; Z82.49 Family history of ischemic heart disease and other diseases of the circulatory system
CPT/HCPCS: 71045; 71275; 80047; 80076; 83690; 84132; 84484; 85025; 93005; 93041; 94760; 99285; Q9967

== ENCOUNTER 2021-06-19 09:50 | Emergency (ER) | payer MEDICARE, MEDICAID ==
[~2021-06-19] VITALS: Ht 182.9 cm; Wt 145.4 kg
[2021-06-19 09:50] VITALS: BP 167/95
[~2021-06-19 09:50] MED LIST changes: +GLIP10TA18; +LEXA1TAB
[2021-06-19 14:46] LABS: BASO # 0.1 10^3/uL (0.0-0.2); BASO % 0.4 % (0.0-1.0); EOS # 0.2 10^3/uL (0.0-0.5); EOS % 1.3 % (0.0-3.0); HEMATOCRIT 41.5 % (36.0-47.0); HEMOGLOBIN 13.8 g/dl (12.0-15.5); LYMPH # 3.5 10^3/uL (1.5-5.0); LYMPH % 27.8 % (24.0-44.0); MEAN CORPUSCULAR HEMOGLOBIN 29.7 pg (27.0-33.0); MEAN CORPUSCULAR HGB CONC 33.3 g/dl (32.0-36.5); MEAN CORPUSCULAR VOLUME 89.4 fl (80.0-96.0); MONO # 0.6 10^3/uL (0.0-0.8); MONO % 4.7 % (2.0-8.0); NEUTROPHILS # 8.2 10^3/uL (1.5-8.5); NEUTROPHILS % 65.1 % (36.0-66.0); PLATELET COUNT, AUTOMATED 251 10^3/uL (150-450); RED BLOOD COUNT 4.64 10^6/uL (4.00-5.40); WHITE BLOOD COUNT 12.6 10^3/uL (4.0-10.0)
== END 2021-06-19 16:27 | disposition home or self-care (01) ==
LOC: M ED 09:50
DX: E11.9 Type 2 diabetes mellitus without complications (principal); R07.89 Other chest pain; F33.9 Major depressive disorder, recurrent, unspecified; F41.9 Anxiety disorder, unspecified; Z79.899 Other long term (current) drug therapy; Z88.0 Allergy status to penicillin; F17.210 Nicotine dependence, cigarettes, uncomplicated

== ENCOUNTER 2021-12-10 10:21 | Emergency (ER) | payer MEDICARE, MEDICAID, OTHER ==
[~2021-12-10] VITALS: Ht 185.4 cm; Wt 141.0 kg
[2021-12-10 11:43] LABS: BASO % 0.3 % (0.0-1.0); EOS # 0.1 10^3/uL (0.0-0.5); EOS % 0.8 % (0.0-3.0); HEMOGLOBIN 14.3 g/dl (12.0-15.5); LYMPH # 1.9 10^3/uL (1.5-5.0); LYMPH % 16.5 % (24.0-44.0); MEAN CORPUSCULAR HEMOGLOBIN 29.2 pg (27.0-33.0); MEAN CORPUSCULAR HGB CONC 32.5 g/dl (32.0-36.5); MONO # 0.6 10^3/uL (0.0-0.8); MONO % 5.1 % (2.0-8.0); NEUTROPHILS # 8.8 10^3/uL (1.5-8.5); NEUTROPHILS % 76.9 % (36.0-66.0); PLATELET COUNT, AUTOMATED 247 10^3/uL (150-450); RED BLOOD COUNT 4.89 10^6/uL (4.00-5.40); WHITE BLOOD COUNT 11.5 10^3/uL (4.0-10.0)
[2021-12-10 12:00] LABS: APPEARANCE, URINE MANUAL CLEAR (CLEAR); COLOR, URINE MANUAL YELLOW (YELLOW)
[2021-12-10 12:01] LABS: BILIRUBIN, URINE MANUAL NEGATIVE (NEGATIVE); BLOOD URINE MANUAL POSITIVE (NEGATIVE); GLUCOSE, URINE (UA) MANUAL NEGATIVE (NEGATIVE); KETONE, URINE MANUAL NEGATIVE (NEGATIVE); LEUKOCYTE ESTERASE, URINE MAN NEGATIVE (NEGATIVE); NITRITE, URINE MANUAL NEGATIVE (NEGATIVE); PROTEIN, URINE MANUAL TRACE mg/dL (NEGATIVE); SPECIFIC GRAVITY,URINE MANUAL 1.025 (1.002-1.035); UROBILINOGEN, URINE MANUAL NORMAL (NORMAL)
[2021-12-10 12:02] LABS: PROTHROMBIN TIME 13.4 SECONDS (12.5-14.5)
[2021-12-10 12:03] LABS: PARTIAL THROMBOPLASTIN TIME 29.8 SECONDS (24.8-34.2)
[2021-12-10 12:13] LABS: BACTERIA, URINE SMALL AMOUNT; CALCIUM OXALATE CRYSTALS,URINE SMALL AMOUNT /hpf; SQUAMOUS EPITHELIAL CELL URINE SMALL AMOUNT /hpf (SMALL AMT); WBC, URINE 0-1 /hpf (0-3)
[2021-12-10 12:15] LABS: MUCUS, URINE SMALL AMOUNT (NEGATIVE)
[2021-12-10 12:25] LABS: ALBUMIN 3.3 GM/DL (3.2-5.2); ALT/SGPT 35 U/L (12-78); AMYLASE 20 U/L (25-115); BILIRUBIN,DIRECT 0.1 MG/DL (0.0-0.2); BILIRUBIN,TOTAL 0.4 MG/DL (0.2-1.0); BLOOD UREA NITROGEN 10 MG/DL (7-18); CARBON DIOXIDE LEVEL 24 MEQ/L (21-32); CHLORIDE LEVEL 106 MEQ/L (98-107); CK-MB VALUE MASS 1.3 NG/ML (<3.6); CREATININE FOR GFR 0.82 MG/DL (0.55-1.30); ETHYL ALCOHOL (ETHANOL) 0.006 % (0.000-0.010); GLOMERULAR FILTRATION RATE > 60.0 (>58); GLUCOSE, FASTING 171 MG/DL (70-100); LIPASE 142 U/L (73-393); MB/CK RELATIVE INDEX 1.94 (< OR =4); POTASSIUM SERUM 4.4 MEQ/L (3.5-5.1); SODIUM LEVEL 136 MEQ/L (136-145)
[2021-12-10 12:36] LABS: HCG, SERUM QUALITATIVE NEGATIVE (NEGATIVE)
[2021-12-10 12:38] LABS: AMPHETAMINES LEVEL URINE NEGATIVE (NEGATIVE); BARBITURATES URINE NEGATIVE (NEGATIVE); BENZODIAZEPINES URINE NEGATIVE (NEGATIVE); CANNABINOIDS URINE NEGATIVE (NEGATIVE); COCAINE METABOLITE URINE NEGATIVE (NEGATIVE); METHADONE URINE NEGATIVE (NEGATIVE); OPIATES URINE NEGATIVE (NEGATIVE); PHENCYCLIDINE URINE NEGATIVE (NEGATIVE)
[2021-12-10 15:20] VITALS: BP 165/81
== END 2021-12-10 15:22 | disposition home or self-care (01) ==
LOC: EDBD 10:21 → M ED 10:21
DX: S60.221A Contusion of right hand, initial encounter (principal); S00.91XA Abrasion of unspecified part of head, initial encounter; V03.10XA Pedestrian on foot injured in collision with car, pick-up truck or van in traffic accident, initial encounter; Z88.0 Allergy status to penicillin; M50.221 Other cervical disc displacement at C4-C5 level; M43.02 Spondylolysis, cervical region; M89.8X2 Other specified disorders of bone, upper arm; Z79.899 Other long term (current) drug therapy

== ENCOUNTER → 2023-03-11 | Outpatient (CLI) | payer MEDICARE, MEDICAID | LOC: M WHC 07:25 | PROVIDERS: ATTEND Nurse Practitioner Adult Health | DX: Z12.31 Encounter for screening mammogram for malignant neoplasm of breast (principal) ==

== ENCOUNTER → 2023-03-27 | Outpatient (CLI) | payer MEDICARE, MEDICAID | LOC: M WHC 12:03 | PROVIDERS: ATTEND Nurse Practitioner Adult Health | DX: K80.20 Calculus of gallbladder without cholecystitis without obstruction (principal); K76.0 Fatty (change of) liver, not elsewhere classified; R74.01 Elevation of levels of liver transaminase levels ==

== ENCOUNTER → 2023-03-27 | Outpatient (REF) | payer MEDICARE, MEDICAID ==
[2023-03-27 18:18] LABS: PTH INTACT 73.6 PG/ML (18.5-88.0)
[2023-03-27 18:22] LABS: FREE T3 3.2 PG/ML (2.3-4.2)
== END ==
LOC: M LAB REF 17:33
PROVIDERS: ATTEND Nurse Practitioner Adult Health
DX: R74.01 Elevation of levels of liver transaminase levels (principal)

== ENCOUNTER → 2023-10-08 | Outpatient (CLI) | payer MEDICARE, MEDICAID ==
[~2023-10-08] MED LIST changes: +GASTROGRAFIN SOLUTION 30ML ONE; +ISOVUE-370 76% 100ML VIAL ONE
== END ==
LOC: M PLAIMG 09:24
PROVIDERS: ATTEND Nurse Practitioner Adult Health
DX: R10.31 Right lower quadrant pain (principal)
CPT/HCPCS: 74178; Q9963; Q9967

== ENCOUNTER 2024-11-09 18:43 | Emergency (ER) | payer MEDICARE, MEDICAID ==
[~2024-11-09] VITALS: Ht 185.4 cm; Wt 123.1 kg
[~2024-11-09 18:43] MED LIST changes: -GASTROGRAFIN SOLUTION 30ML ONE; +GLIP-320; -GLIP10TA18; -ISOVUE-370 76% 100ML VIAL ONE
[2024-11-09] MEDS ORDERED: TRAZ1TAB11 (18:52)
[2024-11-09] MEDS ORDERED: DOXY-440 PO (20:53)
[2024-11-09] MEDS: DOXYCYCLINE HYCLATE 100 MG TABLET PO ONE (20:59)
[2024-11-09 21:00] VITALS: BP 142/78; TEMP 97.4; O2SAT 98
== END 2024-11-09 21:02 | disposition home or self-care (01) ==
LOC: M ED 18:43
DX: L03.114 Cellulitis of left upper limb (principal); F17.200 Nicotine dependence, unspecified, uncomplicated; Z88.0 Allergy status to penicillin

== ENCOUNTER → 2024-11-23 | Outpatient (REF) | payer MEDICARE, MEDICAID ==
[~2024-11-23] MED LIST changes: +DOXY-440 PO; +TRAZ1TAB11
== END ==
LOC: M LAB REF 14:23
PROVIDERS: ATTEND Nurse Practitioner Adult Health
DX: S41.102D Unspecified open wound of left upper arm, subsequent encounter (principal)

== ENCOUNTER → 2025-01-01 | Outpatient (CLI) | payer MEDICARE, MEDICAID | LOC: M RAD 08:33 | PROVIDERS: ATTEND Nurse Practitioner Adult Health | DX: R06.02 Shortness of breath (principal) ==